=== PATIENT | male | born 1945 | race Caucasian/White ===

== ENCOUNTER → 2017-04-12 | Outpatient (CLI) | payer MEDICARE, OTHER ==
[2013-12-10 20:26] VITALS: BP 147/86
[~2017-04-12] MED LIST: BACL10TA PO; BUPIVACAINE MPF 0.25% 10 ML VIAL. ONE; BUPR100T8 PO; CYCL5TAB PO; DULO60CA6 PO; OMEP20CA5 PO; methylPREDNISolone ACETATE 40 MG/ML VIAL. ONE
--- NOTE | 2017-04-12 13:18 | PAIN ---
DATE OF SERVICE: 04/12/2017 DIAGNOSES: 1. Cervical radiculopathy with cervical spinal stenosis and post-cervical laminectomy syndrome. 2. Lumbar radiculopathy with lumbar spinal stenosis and lumbar spondylosis. 3. Myofascial pain. HISTORY OF PRESENT ILLNESS: The patient is a 71-year-old male who returns for followup status post trigger point injection as well as previous lumbar and cervical epidural steroid injections. The patient has done very well with these in the past, was last seen 06/16/2016. The patient had some trigger point injections, did very well with these in the neck and upper back and mid back. The patient reports that since that time, he has been using heat and massage techniques and therapies to decrease the pain but has begun to the point where it is becoming much more painful and noticeable with less ability to decrease the pain on his own. The patient reports no new motor or sensory deficits, no new changes, but still significant pain in the base of the neck, shoulders, upper back, mid back, slightly more on the left than the right with a bit of weakness noted in the right arm. The patient reports his pain is a 10 on a scale of 10. It is worst as an 8 on average as aching, sharp, tight, shooting, stabbing and tingling in the right arm, but mostly in the base of the neck, shoulders, also some in the jaw, tightness around the anterior aspect of the upper chest and lower neck. The patient reports heat does decrease this and massage technique, especially on the neck and upper back but it is becoming to the point where he is not successful, doing this on his own. The patient reports it does not awaken him from sleep at night, he sleeps about 6 hours to 7 hours at time. No new motor or sensory deficits, no new bowel or bladder incontinence or other complaints. 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 FAMILY HISTORY: Significant for cancer. The patient is unsure what type it is. SOCIAL HISTORY: The patient reports he is currently disabled. Pain does impede his activities of daily living to a fairly significant extent. 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 The patient's medication list was updated and is well documented on the patient's chart as is his current review of systems which was updated and is negative except for those items mentioned in the history of present illness. PHYSICAL EXAMINATION: VITAL SIGNS: Today, his blood pressure is 125/87, pulse 80, respirations 16, temperature is 97.9 degrees Fahrenheit. Height is 5 feet 10 inches, weight is 190 pounds. GENERAL: The patient is awake, alert, oriented, appropriate, very pleasant demeanor. HEENT: Head shows normocephalic, atraumatic. Extraocular movements are intact, symmetrical. Oral cavity: Mucous membranes moist and pink. Dentition is intact. NECK: Shows anterior throat supple without palpable lymphadenopathy noted. Swallow reflex is symmetrical. CHEST: Shows normal on inspection. Breath sounds clear to auscultation bilaterally. HEART: Shows S1 and S2 clear. ABDOMEN: Soft, nontender, nondistended. No palpable organomegaly, no rebound or guarding demonstrated. BACK: Shows spine grossly midline. Normal appearing thoracic kyphosis, cervical lordotic curvature and lumbar lordotic curvature. Cervical paraspinous muscle shows significant tenderness in the inferior aspect of the cervical paraspinous muscles and into the trapezius, more on the left than the right with very firm rope-like musculature in the inferior cervical paraspinous musculature as well as the left trapezius in the middle and lateral distribution is also true in the rhomboid muscles bilaterally with very firm rope-like trigger point musculature bilaterally in the trapezius and the rhomboid distribution, also into the left greater than right, but present bilaterally. Thoracic paraspinous musculature is very tender, more on the left side than the right as well, but without specific radiation. EXTREMITIES: The patient's upper extremities show deep tendon reflexes 1+ in the biceps and triceps tendons. Motor exam is strong with house wrecker strength rated at 5/5 at his biceps and triceps flexion. Lower extremities show deep tendon reflexes 2+ in the patellar and 1+ tendo-calcaneus tendons. Motor exam is strong with 5/5 dorsiflexion, extension, quadriceps and hamstring flexion and are symmetrical. Peripheral pulses are 2+ radial and 1+ posterior tibia. No peripheral edema is noted in any of the extremities. Options were discussed with the patient and the patient's old chart was reviewed as his current medication regimen updated and current review of systems updated today as noted. We will proceed with trigger point injections of the aforementioned musculature. Risks were again discussed including, but not limited to bleeding, infection, possibility of epidural hematoma and subsequent neurological compromise, dural punctures, headaches, spinal cord and/or nerve damage, side effects of steroid medication, pneumothorax, spread of local anesthetic and numbness as well as poor results regarding pain control. The patient understands and wishes to proceed. The patient will return to clinic in approximately 2 weeks for followup, was counseled on return appointment, activity level and side effects to be aware of. Also discussed that heat and massage therapies. The patient will continue this at home, was encouraged to do these exercises and stretches which he does routinely as well. DIAGNOSIS: Myofascial pain. PROCEDURE: Trigger point injections of bilateral trapezius, bilateral cervical paraspinous musculature, bilateral rhomboid musculature and bilateral thoracic paraspinous musculature using sterile prep and drape under local anesthetic. Medication injected a total of 40 mg Depo-Medrol plus total of 11 mL of 0.25% bupivacaine after negative aspiration at each level. CONDITION AT DISCHARGE: Stable. The patient tolerated procedure well, had no complications. YUE HASSAN MD DR: SANTOSH/ching JOB#: [id number] / [id number]
== END | disposition home or self-care (01) ==
LOC: PNCL 09:55
PROVIDERS: ATTEND Anesthesiology
DX: M79.1 Myalgia (principal); M47.26 Other spondylosis with radiculopathy, lumbar region; M96.1 Postlaminectomy syndrome, not elsewhere classified; M48.02 Spinal stenosis, cervical region; M54.12 Radiculopathy, cervical region; M19.91 Primary osteoarthritis, unspecified site; F41.9 Anxiety disorder, unspecified; F32.9 Major depressive disorder, single episode, unspecified; E78.00 Pure hypercholesterolemia, unspecified; Z96.643 Presence of artificial hip joint, bilateral
CPT/HCPCS: 20553; J1030; J3490

== ENCOUNTER → 2017-04-26 | Outpatient (CLI) | payer MEDICARE, OTHER ==
[2013-12-10 20:26] VITALS: BP 147/86
--- NOTE | 2017-04-26 10:41 | PAIN ---
DATE OF SERVICE: 04/26/2017 DIAGNOSES: 1. Cervical radiculopathy with cervical spinal stenosis and post-cervical laminectomy syndrome. 2. Lumbar radiculopathy with lumbar spinal stenosis and spondylosis. 3. Myofascial pain. HISTORY OF PRESENT ILLNESS: The patient is a 71-year-old male who returns for followup status post trigger point injections, last seen on 04/12/2017. The patient did very well with about 75% improvement in the neck, shoulders, more on the left mid upper back, with pain decreased significantly. For about a week and half, the patient reports pain has been returning slightly, but is still doing quite well. He has been stretching and doing strengthening exercises as well as heat and massage techniques and therapies for his shoulders and back, which he feels helps significantly. The patient reports pain is worse at L5, averaging about a 4, at least about 3 and is a 3 today. The patient reports it is tight cramping, sometimes shooting pain in the base of the neck, shoulders, left mid back, upper back and slightly into the low back. The patient reports he is generally feeling much better, no new motor or sensory deficits, no new changes. The patient is sleeping well at night, much better with lying down, worse with up and active, with repetitive motions in the shoulders and upper back. PHYSICAL EXAMINATION: VITAL SIGNS: Today, the patient's blood pressure 133/82, pulse 77, respirations 16, temperature 98.0 degrees Fahrenheit, weight is 192 pounds. GENERAL: The patient is awake, alert, oriented, appropriate, very pleasant demeanor. HEENT: Head shows normocephalic, atraumatic. Extraocular movements are intact and symmetrical. Oral cavity shows mucous membranes moist and pink. Dentition is intact. NECK: Shows anterior throat supple without palpable lymphadenopathy noted. Swallow reflex is symmetrical. CHEST: Shows normal on inspection. Breath sounds clear to auscultation bilaterally. HEART: Shows S1 and S2 clear. ABDOMEN: Soft, nontender, nondistended. No palpable organomegaly is noted. BACK: Shows spine grossly midline. Some slight hypertrophy in the thoracic paraspinous musculature compared to the right. On the left side, quite hypertrophied in appearance. With palpation shows significant tenderness and very firm rope-like musculature in the left trapezius as well as the inferior cervical paraspinous musculature. This is true on the right side, but not to the extent of tenderness, but still very firm rope-like musculature bilaterally, very tender with palpation. Left thoracic paraspinous musculature again hypertrophied on the left compared to the right with very firm rope-like musculature in this region as well. Very tender with palpation without radiation. Lumbar shows some slight area of one specific trigger point region in the left lumbar distribution, but not the right. Well-healed surgical scar is noted in the low back as well. Options were discussed with the patient, and the patient's old chart was reviewed, his current medication regimen updated. Current review of systems updated today as well. We will proceed with trigger point injections of the left and right trapezius, cervical paraspinous musculature as well as thoracic paraspinous musculature and the left lumbar paraspinous musculature. Risks were again discussed including, but not limited to bleeding, infection, possibility of intravascular injection sequelae, pneumothorax, spread of local anesthetic and numbness, side effects of steroid medication and poor results regarding pain control. The patient understands and wishes to proceed. The patient will return to clinic in approximately 2 weeks for followup, was counseled on return appointment, activity level and side effects to be aware of. The patient also counseled as to maintain strengthening and stretching exercises, heat and massage therapies as he is doing with upper mid back and low back. DIAGNOSES: Myofascial pain with trigger points of bilateral trapezius, bilateral cervical paraspinous musculature, bilateral thoracic paraspinous musculature and left lumbar paraspinous musculature. PROCEDURE: Trigger point injections with local anesthetic under sterile prep and drape. Medications, injected with a total of 40 mg Depo-Medrol plus total of 10 mL 0.25% bupivacaine with negative aspiration at each injection level. CONDITION AT DISCHARGE: Stable. The patient tolerated procedure well, had no complications. YUE HASSAN MD DR: SANTOSH/ching JOB#: [id number] / [id number]
== END | disposition home or self-care (01) ==
LOC: PNCL 08:11
PROVIDERS: ATTEND Anesthesiology
DX: M79.1 Myalgia (principal); M54.12 Radiculopathy, cervical region; M48.02 Spinal stenosis, cervical region; M96.1 Postlaminectomy syndrome, not elsewhere classified; M47.26 Other spondylosis with radiculopathy, lumbar region; M48.061 Spinal stenosis, lumbar region without neurogenic claudication
CPT/HCPCS: 20553; J1030; J3490

== ENCOUNTER → 2017-06-10 | Outpatient (CLI) | payer MEDICARE, OTHER ==
[2013-12-10 20:26] VITALS: BP 147/86
--- NOTE | 2017-06-10 13:25 | PN ---
DATE: 07/10/2017 PROGRESS NOTE FOR PAIN CLINIC. DIAGNOSES: 1. Cervical radiculopathy with cervical spinal stenosis and post-cervical laminectomy syndrome. 2. Lumbar radiculopathy with lumbar spinal stenosis and spondylosis. 3. Myofascial pain. HISTORY OF PRESENT ILLNESS: The patient is a 71-year-old male who returns to followup status post trigger point injections on 04/26/2017. The patient reported he did very well with these initially, with approximately 70% improvement overall. There is still some pain increasing, now on the base of the neck, shoulders, upper back and mid back, becoming more tight, more aching and dull, with some radiating pain to the lateral shoulder, slightly more on the right than the left, but present bilaterally. The patient reports the pain is a 5 on a scale of 10 at its worst, 4 on average and 3 on its least and it is a 3 today. The patient reports it is better with lying down or resting and worse with using his upper extremities, stretching his neck, looking upwards, using his arms in repetitive motion above his head or even getting dressed, putting his arm through the sleeve of his shirt. The patient reports it does not awaken him from sleep. However, he feels better with lying down, resting and supporting his arms without stretching. The patient reports difficulty with driving the car with pain as well, reaching forward for the chair mostly with the right arm. The patient reports no new motor or sensory deficits. No other complaints. PHYSICAL EXAMINATION: VITAL SIGNS: The patient's blood pressure is 133/89, pulse 79, respirations 18 and temperature 97.8 degrees Fahrenheit. Height is 5 foot 10 inches and weight is 196 pounds. GENERAL: The patient is awake, alert, oriented and appropriate with very pleasant demeanor. HEENT: Exam shows normocephalic, atraumatic. Extraocular movements are intact and symmetrical. Oral cavity, mucous membranes moist and pink. NECK: Shows anterior throat supple. Swallow reflex symmetrical. CHEST: Shows normal on inspection. Breath sounds are clear to auscultation bilaterally. HEART: Shows S1, S2 clear. BACK: Shows spine grossly in the midline. Cervical paraspinous musculature is symmetrical on inspection. With palpation, it shows some moderate tenderness with severe pain with very firm rhomboid musculature in the inferior aspect of the cervical paraspinous muscular as well as into the bilateral trapezius and into the bilateral rhomboid distribution and the upper thoracic distribution, again worse on the right than the left at this time, with very firm, rope-like musculature in each of these areas identified, but without specific radiation. The patient has good rotation of motion of the cervical spine as well as extension and flexion. Minor pain reported with extension and some pulling sensation reported with forward flexion, but not with right or left lateral rotation past 45 degrees. EXTREMITIES: Upper extremities show deep tendon reflexes 2+ in the biceps and triceps tendons. Motor exam is strong with dining room helper strength rated at 5/5 with biceps and triceps flexion. Options were discussed with the patient. The patient's old chart was reviewed as his current medication regimen updated. Current review of systems updated today as well and we will proceed with trigger point injections of the identified musculature. Risks were discussed including but not limited to bleeding, infection, possibilities of intravascular injection sequelae, spread of local anesthetic and numbness, pneumothorax, side effects to steroid medication and poor results regarding pain control. The patient understands and wishes to proceed. The patient will return to the clinic in approximately 4 weeks for followup, was counseled on return appointment, activity level and side effects to be aware of. DIAGNOSES: 1. Myofascial pain. 2. Cervical radiculopathy with post-cervical laminectomy syndrome. 3. Lumbar radiculopathy with lumbar spinal stenosis. PROCEDURE: Trigger point injections to bilateral cervical paraspinous musculature, bilateral trapezius musculature, bilateral rhomboid musculature and bilateral thoracic paraspinous musculature under sterile prep and drape using local anesthetic. MEDICATION INJECTED: A total of 40 mg Depo-Medrol for a total of 10 mL of 0.25% bupivacaine after negative aspiration at each injection site. CONDITION AT DISCHARGE: Stable. The patient tolerated the procedure well, had no complications. YUE HASSAN MD DR: SANTOSH/ching JOB#: [id number] / [id number]
== END | disposition home or self-care (01) ==
LOC: PNCL 07:37
PROVIDERS: ATTEND Anesthesiology
DX: M54.12 Radiculopathy, cervical region (principal); M48.02 Spinal stenosis, cervical region; M96.1 Postlaminectomy syndrome, not elsewhere classified; M47.26 Other spondylosis with radiculopathy, lumbar region; M48.061 Spinal stenosis, lumbar region without neurogenic claudication; M79.1 Myalgia
CPT/HCPCS: 20553; J1030; J3490

== ENCOUNTER → 2017-08-30 | Outpatient (CLI) | payer OTHER ==
[~2017-08-30] MED LIST changes: -BACL10TA PO; +BUPIVACAINE MPF 0.25% 10 ML VIAL.; -BUPIVACAINE MPF 0.25% 10 ML VIAL. ONE; -BUPR100T8 PO; -CYCL5TAB PO; -DULO60CA6 PO; -OMEP20CA5 PO; +methylPREDNISolone ACETATE 40 MG/ML VIAL.; -methylPREDNISolone ACETATE 40 MG/ML VIAL. ONE
== END | disposition home or self-care (01) ==
LOC: PNCL 08:04
DX: M54.12 Radiculopathy, cervical region (principal); M48.02 Spinal stenosis, cervical region; M96.1 Postlaminectomy syndrome, not elsewhere classified; M54.16 Radiculopathy, lumbar region; M48.061 Spinal stenosis, lumbar region without neurogenic claudication
CPT/HCPCS: 20553; J1030; J3490

== ENCOUNTER → 2017-09-28 | Outpatient (CLI) | payer OTHER | END | disposition home or self-care (01) | LOC: PNCL 09:40 | DX: M79.1 Myalgia (principal); M54.12 Radiculopathy, cervical region; M48.02 Spinal stenosis, cervical region; M96.1 Postlaminectomy syndrome, not elsewhere classified | CPT/HCPCS: 20553; J1030; J3490 ==

== ENCOUNTER → 2017-10-26 | Outpatient (CLI) | payer OTHER | LOC: PNCL 09:37 | DX: M51.16 Intervertebral disc disorders with radiculopathy, lumbar region (principal); M48.061 Spinal stenosis, lumbar region without neurogenic claudication; M50.10 Cervical disc disorder with radiculopathy, unspecified cervical region; M79.1 Myalgia | CPT/HCPCS: 20553; J1030; J3490 ==

== ENCOUNTER → 2017-11-16 | Outpatient (CLI) | payer OTHER | END | disposition home or self-care (01) | LOC: PNCL 09:40 | DX: M79.1 Myalgia (principal); M48.061 Spinal stenosis, lumbar region without neurogenic claudication; M47.26 Other spondylosis with radiculopathy, lumbar region; M96.1 Postlaminectomy syndrome, not elsewhere classified; M48.02 Spinal stenosis, cervical region | CPT/HCPCS: 20553; J1030; J3490 ==

== ENCOUNTER → 2018-08-11 | Outpatient (CLI) | payer MEDICARE ==
[2013-12-10 20:26] VITALS: BP 147/86
[~2018-08-11] MED LIST changes: +BACL10TA PO; -BUPIVACAINE MPF 0.25% 10 ML VIAL.; +BUPR100T8 PO; +CHOL200074 PO; +CYCL5TAB PO; +DULO60CA6 PO; +FINA5TAB PO; +OMEP20CA5 PO; +[UNRECOGNIZED DRUG - OTHER]; -methylPREDNISolone ACETATE 40 MG/ML VIAL.
--- NOTE | 2018-08-11 18:04 | RAD ---
Ultrasound venous Doppler INDICATION:LEFT CALF PAIN TECHNIQUE: Grayscale, color Doppler and spectral waveform ultrasound images of the left lower extremity deep veins obtained. COMPARISON: None FINDINGS: The interrogated deep veins are compressible and demonstrate evidence of blood flow with normal respiratory variation and response to augmentation. Lobulated mixed echogenicity masslike lesion in the popliteal fossa of the knee measuring 2.8 x 3.5 x 5.1 cm without internal vascularity. IMPRESSION: 1. No sonographic evidence of acute DVT of the left lower extremity deep veins. 2. Popliteal fossa lesion likely compress Hodge's cyst or hematoma. Electronically signed by: Edin Kennedy DO (08/11/2018 6:00 PM) [facility]
== END | disposition home or self-care (01) ==
LOC: US 16:53
PROVIDERS: ATTEND Orthopaedic Surgery
DX: M79.662 Pain in left lower leg (principal)
CPT/HCPCS: 93971

== ENCOUNTER → 2018-08-17 | Outpatient (CLI) | payer MEDICARE ==
[2013-12-10 20:26] VITALS: BP 147/86
[~2018-08-17] MED LIST changes: +BACL20TA PO; +BUPR300T4 PO; +IBUP-1007 PO; +TAMS0.4C2 PO
--- NOTE | 2018-08-17 09:10 | RAD ---
EXAM: Left lower extremity bone length study. HISTORY: Knee arthroplasty. COMPARISON: None. FINDINGS: Frontal views of the left lower extremity are obtained. There is a left hip arthroplasty. The femoral head arthroplasty component is asymmetrically positioned within the acetabular cup. This suggests asymmetric liner wear. There is severe medial compartment joint space narrowing involving the left knee. There is associated compartment subchondral sclerosis. There is moderate tricompartmental spurring. There is bony remodeling involving the medial compartment with suspected genu varus. IMPRESSION: 1. Severe left knee medial compartment predominant osteoarthritis of the left knee with medial compartment bony remodeling is suspected genu varus. 2. Left hip arthroplasty. The femoral head component is asymmetrically positioned within the acetabular cup. This suggests asymmetric liner wear. Electronically signed by: Maya Powell MD (08/17/2018 9:06 AM) [id number]
--- NOTE | 2018-08-17 13:11 | RAD ---
MR of the left knee - Hayes and Nephew protocol History: left knee pain. PRE OP TOTAL LEFT KNEE ARTHROPLASTY. HAYES&NEPHEW PROTOCOL. NO SX HX. PRIOR XRAY. Technique: Images are obtained in accordance with the standard Hayes and Nephew protocol. 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 Moderate joint effusion. Moderate Hodge's cyst. Severe primary osteoarthritis. Medial meniscal tear. Lateral meniscal tear. Anterior cruciate ligament is not visualized. Generalized soft tissue edema. Electronically signed by: Ronak Taylor MD (08/17/2018 1:05 PM) [facility]
== END | disposition home or self-care (01) ==
LOC: RAD 08:34
PROVIDERS: ATTEND Orthopaedic Surgery
DX: Z01.818 Encounter for other preprocedural examination (principal); S83.242A Other tear of medial meniscus, current injury, left knee, initial encounter; S83.282A Other tear of lateral meniscus, current injury, left knee, initial encounter; M17.12 Unilateral primary osteoarthritis, left knee; M25.462 Effusion, left knee; M71.22 Synovial cyst of popliteal space [Baker], left knee; R60.0 Localized edema; X58.XXXA Exposure to other specified factors, initial encounter; Y93.89 Activity, other specified; Y92.89 Other specified places as the place of occurrence of the external cause; Y99.8 Other external cause status
CPT/HCPCS: 73721; 77073

== ENCOUNTER → 2018-08-22 | Outpatient (CLI) | payer MEDICARE ==
[2013-12-10 20:26] VITALS: BP 147/86
[2018-08-22 10:57] LABS: BILIRUBIN,URINE NEGATIVE (NEG); CLARITY,URINE CLEAR; COLOR,URINE YELLOW; NITRITE,URINE NEGATIVE (NEG); PH,URINE 5.5; PROTEIN,URINE NEGATIVE (NEG-TRACE); UROBILINOGEN,URINE 0.2 mg/dL (0.2 mg/dL)
[2018-08-22 11:10] LABS: BACTERIA,URINE FEW /HPF (0-FEW); RBC,URINE OCC /HPF (0-2)
[2018-08-22 11:30] LABS: BASO % 0 % (0-3); EOS # 0.2 x10^3/uL (0.0-0.7); EOS % 2 % (0-3); HEMOGLOBIN 14.2 g/dL (13.0-17.5); LYMPH # 1.3 x10^3/uL (1.0-4.8); LYMPH % 16 % (24-48); MEAN CORPUSCULAR HEMOGLOBIN 28 pg (25-35); MEAN CORPUSCULAR HGB CONC 33 g/dL (31-37); MEAN CORPUSCULAR VOLUME 85 fL (79-100); MONO # 0.6 x10^3/uL (0.0-1.1); MONO % 8 % (0-9); NEUT % 74 % (31-73); PLATELET COUNT 181 x10^3/uL (140-400); RED BLOOD COUNT 5.03 x10^6/uL (4.30-5.70); RED CELL DISTRIBUTION WIDTH 14.3 % (11.5-14.5); WHITE BLOOD COUNT 8.1 x10^3/uL (4.0-11.0)
[2018-08-22 11:39] LABS: ALBUMIN 3.6 g/dL (3.4-5.0); CALCIUM 8.6 mg/dL (8.5-10.1); GFR 73.5; POTASSIUM 4.4 mmol/L (3.5-5.1)
--- NOTE | 2018-08-22 11:46 | EKG ---
[facility] [address] [place] [address] Test Date: 2018-08-22 Test Time: 11:18:30 Pat Name: SHAHRIAR BEACH Department: Room: Gender: M Manager Recovery: : 1945 Requested By: ADRIANNE BYRD Order Number: [id number] Reading MD: Buck Kearns Measurements Intervals [place] Rate: 68 P: 58 TX: 180 QRS: 37 QRSD: 100 T: 70 QT: 408 QTc: 439 Interpretive Statements SINUS RHYTHM VENTRICULAR PREMATURE COMPLEX(ES) LOW LIMB LEAD VOLTAGE Electronically Signed On 08-23-2018 18:32:11 HEATING AND COOLING TECHNICIAN by Buck Kearns
--- NOTE | 2018-08-22 12:10 | RAD ---
AP and Lateral Views of the Chest 08/22/2018 11:48 AM Indication: Preoperative Comparison: chest radiograph August 17, 2011 Findings: No acute focal consolidation or infiltrate is seen. No pneumothorax or pleural effusion is identified. Heart size is within normal limits. Bony thorax is grossly intact. IMPRESSION: No evidence of acute cardiopulmonary process. Electronically signed by: Joesph Alva MD (08/22/2018 12:05 PM) [id number]
== END | disposition home or self-care (01) ==
LOC: SURGPAT 09:53
PROVIDERS: ATTEND Orthopaedic Surgery
DX: Z01.818 Encounter for other preprocedural examination (principal); M17.12 Unilateral primary osteoarthritis, left knee; I49.3 Ventricular premature depolarization
CPT/HCPCS: 36415; 71046; 80048; 81001; 82040; 82306; 85025; 85610; 85651; 85730; 87641; 93005

== ENCOUNTER 2018-09-13 06:51 | Inpatient (IN) | payer MEDICARE ==
[2018-09-13] VITALS (7 sets, daily range): BP systolic 109–128; BP diastolic 65–82
[~2018-09-13] VITALS: Ht 177.8 cm; Wt 93.9 kg
[~2018-09-13 06:51] MED LIST changes: +DEXAMETHASONE SOD PHOS 20 MG/5 ML VIAL. ONE; +FAMOTIDINE 20 MG/2 ML VIAL ONE; +HYDROcodone/APAP 7.5/325MG 1 TAB TABLET PO PRN; +LIDOCAINE 2% PF 5 ML VIAL. ONE; +MELOXICAM 7.5 MG TABLET PO PRN; +MORPHINE SULFATE 5 MG, KETOROLAC 30MG VIAL 30 MG, ROPIVacaine 0.5% PF 60 ML, EPINEPHrin... INT ART ONE; +ONDANSETRON PF 4 MG/2 ML VIAL. ONE; +PROPOFOL 0 ML IV ONE; +ROCURONIUM 50 MG/5 ML VIAL. ONE; +TRANEXAMIC ACID 1,000 MG in IV NS 50ML -- 1ST BAG INJ ONE
[2018-09-13] MEDS ORDERED: PROCHLORPERAZINE 10 MG/2 ML VIAL. IV PRN (07:00)
[2018-09-13] MEDS ORDERED: fentaNYL PF VIAL 100 MCG/2 ML VIAL IV PRN ×4 (07:00→13:15)
[2018-09-13] MEDS ORDERED: HYDROmorphone 2 MG/ML VIAL IV PRN (07:00)
[2018-09-13] MEDS ORDERED: IV RINGERS,LACTATED 1000ML 1,000 ML IV SCH (07:00)
[2018-09-13] MEDS ORDERED: ONDANSETRON PF 4 MG/2 ML VIAL. IV PRN (07:00)
[2018-09-13] MEDS ORDERED: LIDOCAINE 1% PF 2 ML VIAL. ID PRN (07:00)
[2018-09-13] MEDS ORDERED: MORPHINE SULFATE 2 MG/ML VIAL. IV PRN (07:00)
--- NOTE | 2018-09-13 07:39 | PDOC1 ---
History and Physical Date of Admission Date of Admission DATE: 09/13/18 TIME: 07:37 Identification/Chief Complaint Chief Complaint Left knee arthritis pain Source Source: Chart review, Patient History of Present Illness History of Present Illness This 72-year-old man has left knee osteoarthritis for which she has tried nonoperative treatment without success. He has osteoarthritis elsewhere, and has previously had bilateral hip replacements, and a right total knee replacement, all of which are functioning well. The left knee interferes with his activity on a daily basis. Past Medical History Past Medical History Arthritis in multiple joints with multiple joint replacements. Cervical and lumbar arthritis, and lower extremity neuropathy. Borderline diabetes. Fibromyalgia, sees Dr. Duncan for trigger point injections. Depression. Psych: Depression Musculoskeletal: Osteoarthritis Endocrine: Other (prediabetes) Past Surgical History Past Surgical History Left triceps tendon repair, carpal tunnel release, cervical fusion 2003, lumbar fusion 2, bilateral total hip replacement, right knee replacement Past Surgical History: Total hip replacement, Total knee replacement Family History Family History Parents are Social History Smoke: No (were going) Current Medications Current Medications Current Medications Morphine Sulfate 5 mg/Ketorolac Tromethamine 30 mg/Ropivacaine 60 ml/ Epinephrine HCl 0.5 mg/Sodium Chloride 100 ml @ 100 mls/hr 1X ONCE INT ART ; Start 09/13/18 at 06:00; Stop 09/13/18 at 06:59; Status DC Ondansetron HCl (Zofran) 4 mg PRN Q6HRS PRN IV NAUSEA/VOMITING; Start 09/13/18 at 07:00; Stop 09/14/18 at 06:59 Fentanyl Citrate (Fentanyl 2ml Vial) 25 mcg PRN Q5MIN PRN IV MILD PAIN; Start 09/13/18 at 07:00; Stop 09/14/18 at 06:59 Fentanyl Citrate (Fentanyl 2ml Vial) 50 mcg PRN Q5MIN PRN IV MODERATE TO SEVERE PAIN; Start 09/13/18 at 07:00; Stop 09/14/18 at 06:59 Morphine Sulfate (Morphine Sulfate) 1 mg PRN Q10MIN PRN IV SEVERE PAIN; Start 09/13/18 at 07:00; Stop 09/14/18 at 06:59 Ringer's Solution 1,000 ml @ 30 mls/hr Q24H IV Last administered on 09/13/18at 07:32; Start 09/13/18 at 07:00; Stop 09/13/18 at 18:59 Lidocaine HCl (Xylocaine-Mpf 1% 2ml Vial) 2 ml PRN 1X PRN ID IV START; Start at 07:00; Stop 09/14/18 at 06:59 Hydromorphone HCl (Dilaudid) 0.5 mg PRN Q10MIN PRN IV SEV PAIN, Second choice; Start 09/13/18 at 07:00; Stop 09/14/18 at 06:59 Prochlorperazine Edisylate (Compazine) 5 mg PACU PRN PRN IV NAUSEA, MRX1; Start 09/13/18 at 07:00; Stop 09/14/18 at 06:59 Meloxicam (Mobic) 15 mg 1X PREOP PRN PO PRIOR TO PROCEDURE; Start 09/13/18 at 06 :00; Stop 09/13/18 at 06:01; Status Cancel Acetaminophen/ Hydrocodone Bitart (Lortab 7.5/325) 2 tab 1X PREOP PRN PO PRIOR TO PROCEDURE Last administered on 09/13/18at 07:32; Start 09/13/18 at 06:00; Stop 09/13/18 at 18:00 Cefazolin Sodium/ Dextrose 50 ml @ 100 mls/hr 1X PREOP PRN IV PRIOR TO PROCEDURE; Start 09/13/18 at 06:00; Stop 09/13/18 at 18:00 Meloxicam (Mobic) 15 mg 1X PREOP PRN PO PRIOR TO PROCEDURE; Start 09/13/18 at 06 :00; Stop 09/13/18 at 18:00 Acetaminophen/ Hydrocodone Bitart (Lortab 7.5/325) 2 tab 1X PREOP PRN PO PRIOR TO PROCEDURE; Start 09/13/18 at 06:00; Stop 09/13/18 at 06:00; Status DC Cefazolin Sodium/ Dextrose 50 ml @ 100 mls/hr 1X PREOP PRN IV PRIOR TO PROCEDURE; Start 09/13/18 at 06:00; Stop 09/13/18 at 06:00; Status DC Tranexamic Acid 1000 mg/Sodium Chloride 60 ml @ 60 mls/hr 1X PERIOP ONCE INJ ; Start 09/13/18 at 06:00; Stop 09/13/18 at 06:59; Status DC Tranexamic Acid 1000 mg/Sodium Chloride 60 ml @ 60 mls/hr 1X PERIOP ONCE INJ ; Start 09/13/18 at 08:00; Stop 09/13/18 at 08:59 Propofol 20 ml @ As Directed STK-MED ONCE IV ; Start 09/13/18 at 06:44; Stop 09/13 at 06:45; Status DC Dexamethasone Sodium Phosphate (Decadron) 20 mg STK-MED ONCE .ROUTE ; Start 09/13 at 06:44; Stop 09/13/18 at 06:45; Status DC Lidocaine HCl (Lidocaine Pf 2% Vial) 5 ml STK-MED ONCE .ROUTE ; Start 09/13/18 at 06:44; Stop 09/13/18 at 06:45; Status DC Ondansetron HCl (Zofran) 4 mg STK-MED ONCE .ROUTE ; Start 09/13/18 at 06:44; Stop 09/13/18 at 06:45; Status DC Rocuronium [place] (Zemuron) 50 mg STK-MED ONCE .ROUTE ; Start 09/13/18 at 06:44 ; Stop 09/13/18 at 06:45; Status DC Famotidine (Pepcid Vial) 20 mg STK-MED ONCE .ROUTE ; Start 09/13/18 at 06:45; Stop 09/13/18 at 06:46; Status DC Active Scripts Active Reported Ibuprofen 600 Mg Tablet 600 Mg PO PRN Q6HRS PRN Tamsulosin Hcl 0.4 Mg Cap.er.24h 0.4 Mg PO DAILY Bupropion Xl (Bupropion Hcl) 300 Mg Tab.er.24h 300 Mg PO DAILY07 Baclofen 20 Mg Tablet 20 Mg PO QID Prilosec (Omeprazole) 20 Mg Capsule.dr 1 Cap PO DAILY Cymbalta (Duloxetine Hcl) 60 Mg Capsule.dr 1 Cap PO DAILY Allergies Allergies: Coded Allergies: No Known Drug Allergies (Unverified , 09/13/18) ROS General: No: Night Sweats PSYCHOLOGICAL ROS: YES: Depression; No: Other (PTSD) HEENT: No: Heacaches Hematological and Lymphatic: No: Bleeding Problems, Blood Clots Respiratory: No: Cough, Shortness of breath Cardiovascular: No Chest Pain Gastrointestinal: No Nausea, No Vomiting, No Diarrhea, No Constipation Musculoskeletal: Yes Gait Disturbance, Yes Joint Pain Physical Exam General: Alert, Cooperative, No acute distress HEENT: Atraumatic, EOMI Lungs: Normal air movement Heart: RRR Abdomen: Soft Extremities: No clubbing, No cyanosis, Other (The LEFT knee shows a mildly antalgic gait. There is varus alignment. No masses. No detectable effusion. Tenderness on the joint lines. Range of motion is 5-115 degrees. There is crepitus with range of motion, and pain at the extremes of motion. The knee is stable to varus and valgus stress without subluxation or laxity. Muscle strength is slightly weak for the quadriceps 4+/5 which may be due to pain or avoidance, and does not seem neurogenic, and the muscle tone and bulk is slightly decreased. The hamstring strength is 5/5. The skin is normal with no scars, rashes, lesions or ulcers. Light touch sensation is intact. No edema and no varicosities. Dorsalis pedis pulse is intact and capillary refill is normal. ) Skin: No rashes, No breakdown Neuro: Normal speech, Normal tone, Other (slightly decreased sensation bilateral lower extremities) Psych/Mental Status: Mental status NL, Mood NL Vitals Vitals Vital Signs Date Time Temp Pulse Resp B/P (MAP) Pulse Ox O2 Delivery O2 Flow Rate FiO2 09/13/18 07:32 20 95 Room Air 09/13/18 07:26 98.7 76 98.7 09/13/18 07:21 137/79 Images Images [facility] [address] [place] [address] IMAGING REPORT Signed PATIENT: SHAHRIAR BEACH ACCOUNT: [id number] : 1945 LOCATION: [facility] AGE: 72 SEX: M EXAM STATUS: REG CLI ORD. PHYSICIAN: ADRIANNE BYRD MD REASON: PROCEDURE: KNEE LEFT 3V 3 view left knee 08/08/2018 CLINICAL INDICATION: Left knee pain with no known injury. COMPARISON: None. FINDINGS: Total right knee arthroplasty. There is linear soft tissue calcification in the medial aspect of the proximal right calf seen on the AP view. No acute fracture of the left knee. Severe tricompartment degenerative changes with tricompartment zkib-[id number] contact, osteophytosis and subchondral sclerosis. There is minimal lateral subluxation of the tibia relative to the femur and a mild genu varus deformity due to the kjke-qh-kkbo contact of the medial compartment. There is a small suprapatellar knee joint effusion. IMPRESSION: Severe tricompartment degenerative changes of the left knee with [id number]-[id number] contact. Electronically signed by: Chin Dela Cruz MD (08/08/2018 12:57 PM) [facility] DICTATED and SIGNED BY: CHIN DELA CRUZ MD DATE: 08/08/18 1254 VTE Prophylaxis Ordered VTE Prophylaxis Devices: Yes VTE Pharmacological Prophylaxi: Yes Assessment/Plan Assessment/Plan I recommended left total knee arthroplasty for his wahd-[id number]-[id number] arthritis. He is still relatively active otherwise. His other medical conditions such as borderline diabetes, fibromyalgia, neuropathy and depression all raise the risk of poor outcome, but the risks are manageable and I still recommend knee arthroplasty. He stated understanding of those risks, the benefits and alternatives.We discussed the potential risks of infection, neurovascular injury , bleeding, blood clots, need for revision surgery, or other potential surgical or anesthetic complications. All of his questions about surgery were answered and he desires to proceed with surgery. He is here for elective left knee arthroplasty today. ADRIANNE BYRD MD Sep 13, 2018 07:39
[2018-09-13] MEDS ORDERED: TRANEXAMIC ACID 1,000 MG in IV NS 50ML -- 2ND BAG INJ ONE (08:00)
[2018-09-13] MEDS ORDERED: fentaNYL PF VIAL 100 MCG/2 ML VIAL ONE (09:33)
[2018-09-13] MEDS ORDERED: PROPOFOL 0 ML IV ONE (09:33)
[2018-09-13] MEDS ORDERED: MIDAZOLAM HCL/PF 2 MG/2 ML VIAL. ONE (09:33)
[2018-09-13] MEDS ORDERED: PROPOFOL 50 ML IV ONE ×2 (09:34→12:00)
[2018-09-13] MEDS ORDERED: VANCOMYCIN 1 GM VIAL. ONE (10:12)
[2018-09-13] MEDS ORDERED: TOBRAMYCIN POWDER 1.2 GM VIAL. ONE (10:12)
[2018-09-13] MEDS ORDERED: ISOFLURANE UP TO 15 MINUTES. IH ONE (12:20)
[2018-09-13] MEDS ORDERED: VASOPRESSIN 20 UNIT/ML VIAL. ONE (12:20)
[2018-09-13] MEDS ORDERED: PROPOFOL 20 ML IV ONE (12:59)
--- NOTE | 2018-09-13 13:12 | PDOC4 ---
Operative Note Operative Note Date of Procedure: September 13, 2018 Pre-Op Diagnosis: Unilateral primary osteoarthritis, left knee. M17.12 Post-Op Diagnosis: same Procedure: left total knee arthroplasty with patella resurfacing, CPT 65964 Surgeon: Adrianne Luna MD Communications Writer: RGE Roa (Annie) Anesthesia: General EBL: 100 mL Specimens Obtained: left knee bone and soft tissue Complications: none Implant Company: [employer] patient matched cutting blocks. Drains: hemovac plus pain catheter Tourniquet time: 62 Minutes Tourniquet Pressure: 350 mm Hg Indications for Procedure: Arthritis pain unrelieved by nonoperative management. Findings: Severe osteoarthritis with bone on bone contact in all three compartments Implants used: Size 6 left bicruciate stabilized Journey II BCS Oxinium femoral component, size 5 left Journey nonporous tibial baseplate, size 5-6 13 mm left Journey II BCS XLPE articular insert, 35 mm oval Kristina II resurfacing patellar component Procedure in Detail: The patient was identified in the preoperative holding area, and the correct left lower extremity was marked by me. The patient was taken to the operating room where the patient was anesthetized by the Department of Anesthesia. Preoperative antibiotics were given intravenously. Tranexamic acid 1 g was given intravenously for intraoperative hemostasis. A "time-out" procedure was performed. The patient was positioned supine on the operative table with a tourniquet on the upper left thigh. The left lower limb was thoroughly scrubbed , then sterile surgical prep solution was applied, and the limb was draped in sterile fashion. An impervious stockinet and adhesive drape were used such that the skin was entirely covered. An Ramírez leg barrett was used. The operating team wore personal exhaust-ventilated hoods. The limb exsanguinated with an Esmarch bandage, and the tourniquet was inflated. A midline skin incision was made with a scalpel using the patella and tibial tubercle as landmarks. Electrocautery was used for hemostasis. My surgical first assistant used rake retractors. A medial parapatellar arthrotomy incision was used with extension into the distal quadriceps tendon. The patella was retracted laterally and Hohmann retractors were now used by my surgical first assistant. Excess synovium, the menisci, and the cruciate ligaments were resected sharply. The patella was assessed and excess synovium and osteophytes around the patellar articulation were removed. The patella was measured with a caliper, cut freehand with a saw using caliper measurements, sized, and then drilled for an oval three-pegged patella component. A periarticular multimodal ropivacaine anesthetic injection was used in the suprapatellar pouch and distal quadriceps muscle. Whitesides's line and the transepicondylar axis were marked on the femur. A patient matched cutting guide was pinned to the femur, and a distal femoral cut was made with an oscillating saw. My surgical first assistant held Hohmann retractors and an [facility] retractor to protect the medial and lateral collateral ligaments, the patellar tendon, the skin and the other soft tissues. A 5-in-1 Journey II cutting guide was then applied and pinned to the femur. The posterior, anterior , and all chamfer cuts were made with the oscillating saw. An extramedullary guide was pinned to the tibia and rotational alignment and the planned resection thickness assessed. An external alignment nazia was used to verify the planned cut in the varus-valgus plane and regarding posterior slope referencing the tibial tubercle, the tibial shaft, the ankle joint, and the second metatarsal. The upper tibia was cut made with an oscillating saw. My surgical first assistant held Hohmann retractors and a posterior cruciate ligament retractor to protect the medial and lateral collateral ligaments, the patellar tendon, the skin, the peroneal nerve and the other soft tissues. The upper tibia was sized with a trial baseplate. The posterior compartment was cleared of osteophytes and loose bodies. The periarticular anesthetic injection was used in the posterior compartment. The box cut for a posterior stabilized component was made. A preliminary reduction was performed with a trial femur, trial tibial baseplate and trial polyethylene. Soft-tissue balancing was now performed, and extension and rotation of the alignments was checked using a guide nazia in the tibial trial and a guide pin in the femur. No additional releases were required. The stability was assessed using different thicknesses of tibial articular surface to find satisfactory stability and good range of motion. The rotation of the tibial component was marked on the upper tibia. Final trial reduction was now performed verifying patella tracking and tibiofemoral stability and alignment. The tibia preparation was completed with a drill, saw, and fin punch at the previously noted rotation. The final implants were verified and opened. Outer gloves were changed by the operating team. The bone cuts were washed thoroughly with the [place] InterPulse device and dried. Two packages of [employer] Nephew Rally HV bone cement were mixed in powdered form with Vancomycin 1gm and Tobramycin 1.2 gm, and then vacuum-mixed with the monomer, and placed into a cement gun. The cut surfaces of the bone were thoroughly dried with Dewey-tip suction and with laparotomy sponges for cement interdigitation. The final components were cemented into place. The knee was kept at full extension while the cement hardened, and excess cement was removed. A Betadine lavage was used throughout the surgical exposure, and allowed to sit in contact with the exposed joint surfaces for three minutes while the cement hardened. Tranexamic acid 1 g was redosed intravenously for additional intraoperative hemostasis. The tourniquet was released, and electrocautery was used for hemostasis. A final periarticular anesthetic injection was used for pain relief. A final check of rahjf-da-commqk and stability was made, and the polyethylene implant final size was chosen. The polyethylene implant was secured to the tibial baseplate, and the knee was reduced a final time and range of motion and stability was confirmed. Thorough irrigation was used. Hemovac and pain catheter were used.The arthrotomy was closed with interrupted idpvuy-vq-dzelt # 1 PDS suture. The arthrotomy incision was then run with #1 STRATAFIX Symmetric PDS Plus Knotless suture. The subcutaneous tissues were reapproximated initially with 2-0 PDS . Next the subcuticular layer was reapproximated in a running fashion with #3-0 Stratafix suture by my surgical first assistant. The skin incision was then covered and reinforced with Acticoat, followed by a CHARLY single use negative pressure wound therapy dressing Soft roll and an Marbin wrap were applied. Needle and sponge counts were correct. There were no apparent complications. The patient returned to the recovery room in stable condition. ADRIANNE LUNA MD Sep 13, 2018 13:12
[2018-09-13] MEDS ORDERED: IV NORMAL SALINE 1000ML BAG 1,000 ML IV SCH (13:13)
[2018-09-13] MEDS ORDERED: METOCLOPRAMIDE HCL 10 MG/2 ML VIAL. IV PRN (13:15)
[2018-09-13] MEDS ORDERED: PROCHLORPERAZINE 5 MG TABLET. PO PRN (13:15)
[2018-09-13] MEDS ORDERED: DEXTROSE 50% 25 GM / 50ML DISP.SYRIN. IV PRN (13:15)
[2018-09-13] MEDS ORDERED: diphenhydrAMINE 50 MG/ML VIAL IV PRN (13:15)
[2018-09-13] MEDS ORDERED: MORPHINE SULFATE 4 MG/ML VIAL. IV PRN ×2 (13:15)
[2018-09-13] MEDS ORDERED: CALCIUM CARBONATE 500 MG TAB.CHEW PO PRN (13:15)
[2018-09-13] MEDS ORDERED: 0.9 % SODIUM CHLORIDE 10 ML DISP.SYRIN. IV PRN (13:15)
[2018-09-13] MEDS ORDERED: oxyCODONE/APAP 5/325 1 TAB TABLET PO PRN (13:45)
[2018-09-13] MEDS: BACLOFEN 10 MG TABLET. PO SCH ×3 (14:00→21:00)
[2018-09-13] MEDS: DULoxetine HCL 30 MG CAPSULE.DR PO SCH (14:00)
[2018-09-13] MEDS: MULTIVITAMIN with MINERAL TABLET. PO SCH (14:00)
[2018-09-13] MEDS: SENNOSIDES/DOCUSATE 8.6/50MG TABLET. PO SCH (14:00)
--- NOTE | 2018-09-13 14:35 | NUR ---
Arrived to unit by bed from PACU. Awake with no c/o at this time. Left leg elevated on pillow with ice pack. Left knee dressing is d/i with IAC with Hemovac drain and CHARLY dressing. Pedal pulses + bilaterally, and warm touch. Legs are numb at this time due spinal sedation. States feels pressure on palpation. CRISTELA and SCD on right leg and ATSHA on left foot. IVF's intact and infusing. O2 at 2 l per n/c. Oriented to room and controls. Side rails up x's 2 with call light in reach. at bedside. Cont. monitor.
--- NOTE | 2018-09-13 14:54 | RAD ---
EXAM: AP and lateral views of the left knee DATE: 09/13/2018 1:13 PM INDICATION: POST OP KNEE REPLACEMENT COMPARISON: No Prior FINDINGS: Changes of left total knee arthroplasty are now seen apparent eccentric positioning of the tibial stem on the AP view may be projectional. Otherwise left total knee arthroplasty in good alignment without definite hardware complication or fracture. Expected postoperative soft tissue changes including intra-articular gas and drain. No evidence of acute fracture or dislocation. IMPRESSION: 1. Left total knee arthroplasty is now seen. Mild eccentric positioning of the left tibial stem may be projectional. 2. No fracture. Electronically signed by: Siva Bales MD (09/13/2018 2:51 PM) [facility]
[2018-09-13] MEDS: oxyCODONE/APAP 5/325 1 TAB TABLET PO PRN (15:38)
[2018-09-13] MEDS: TAMSULOSIN 0.4 MG CAP.ER.24H. PO SCH (15:38)
[2018-09-13] MEDS: buPROPion XL 150 MG TAB.ER.24H. PO SCH (15:39)
[2018-09-13] MEDS: PANTOPRAZOLE 40 MG TABLET.DR. PO SCH (15:41)
[2018-09-13] MEDS: FERROUS SULFATE 325 MG TABLET. PO SCH (15:49)
[2018-09-13] MEDS: ONDANSETRON PF 4 MG/2 ML VIAL. IV SCH (16:34)
[2018-09-13] MEDS: ONDANSETRON ODT 4 MG TAB.RAPDIS. PO SCH (16:34)
[2018-09-13] MEDS: KETOROLAC 30MG VIAL 30 MG, BUPIVACAINE MPF 0.25% 20 ML, EPINEPHrine 0.5 MG in TOTAL VOL... INT ART SCH (17:44)
[2018-09-13] MEDS: ASPIRIN ENTERIC COATED 325 MG TABLET.DR. PO SCH (21:12)
[2018-09-13] MEDS: ZOLPIDEM 5 MG TABLET. PO PRN ×2 (21:12→23:17)
[2018-09-14] VITALS (9 sets, daily range): BP systolic 95–143; BP diastolic 59–77
[2018-09-14] MEDS: KETOROLAC 30MG VIAL 30 MG, BUPIVACAINE MPF 0.25% 20 ML, EPINEPHrine 0.5 MG in TOTAL VOL... INT ART SCH (04:59)
--- NOTE | 2018-09-14 05:10 | NUR ---
Stood at bedside to void. Patient is weak and painful. Fentanyl given IVP. IAC started also. Requested to wear O2 at 4l/nc instead of Cpap. Temp 99. , encouraged IS.
[2018-09-14] MEDS: ONDANSETRON ODT 4 MG TAB.RAPDIS. PO SCH ×3 (06:00→12:00)
[2018-09-14] MEDS: ONDANSETRON PF 4 MG/2 ML VIAL. IV SCH ×3 (06:00→12:00)
[2018-09-14] MEDS ORDERED: MAGNESIUM HYDROXIDE 2,400 MG/30 ML ORAL.SUSP. PO PRN (06:00)
--- NOTE | 2018-09-14 07:19 | PDOC ---
ORTHO PROGRESS NOTES Subjective Patient a little sleepy this morning but with minimal c/o pain. Post-op Day: 1 Procedure L TKA Vitals Vital Signs Date Time Temp Pulse Resp B/P (MAP) Pulse Ox O2 Delivery O2 Flow Rate FiO2 09/14/18 06:26 99.0 106 20 117/71 (86) 95 Nasal Cannula 4.0 99.0 Assessment and Plan POD #1 S/P L TKA Patient moving extremities well motor and sensory intact distally dressing with small amount of dried blood visible Patient with 180cc output from drain with keep clamped for another hour then release. Labs not available at this time. PT today. ELBA TERRY APRN Sep 14, 2018 07:19
[2018-09-14] MEDS: PANTOPRAZOLE 40 MG TABLET.DR. PO SCH (07:23)
[2018-09-14 07:35] LABS: HEMOGLOBIN 12.3 g/dL (13.0-17.5); RED BLOOD COUNT 4.29 x10^6/uL (4.30-5.70); RED CELL DISTRIBUTION WIDTH 14.5 % (11.5-14.5); WHITE BLOOD COUNT 7.8 x10^3/uL (4.0-11.0)
--- NOTE | 2018-09-14 08:00 | NUR ---
he was awakened this am; he was confused to place an time. he thought he was in [place] and had not had surgery. he was drowsy but aroused easily. o2 was reapplied at 1l and o2 sat went up to 94-96%. he denies pain at this time.
[2018-09-14] MEDS: BACLOFEN 10 MG TABLET. PO SCH ×4 (08:30→21:00)
[2018-09-14] MEDS: FERROUS SULFATE 325 MG TABLET. PO SCH ×2 (08:32→17:33)
[2018-09-14] MEDS: DULoxetine HCL 30 MG CAPSULE.DR PO SCH (08:32)
[2018-09-14] MEDS: ASPIRIN ENTERIC COATED 325 MG TABLET.DR. PO SCH ×2 (08:32→21:13)
[2018-09-14] MEDS: MULTIVITAMIN with MINERAL TABLET. PO SCH (08:32)
[2018-09-14] MEDS: SENNOSIDES/DOCUSATE 8.6/50MG TABLET. PO SCH (08:32)
[2018-09-14] MEDS: TAMSULOSIN 0.4 MG CAP.ER.24H. PO SCH (08:32)
[2018-09-14] MEDS: buPROPion XL 150 MG TAB.ER.24H. PO SCH (08:33)
[2018-09-14] MEDS: MELOXICAM 7.5 MG TABLET PO SCH (08:33)
--- NOTE | 2018-09-14 10:03 | PDOC ---
PROGRESS NOTES Subjective Subjective Pain controlled. On his way to and got lightheaded in the hallway. BP was 95/ 60s at the time. Lisinopril held. Bronson better sitting down. Encourage PO fluids. Likely related to narcotics, blood loss, etc. and will resolve. Objective Vital Signs Vital Signs Date Time Temp Pulse Resp B/P (MAP) Pulse Ox O2 Delivery O2 Flow Rate FiO2 09/14/18 06:26 99.0 106 20 117/71 (86) 95 Nasal Cannula 4.0 99.0 Physical Exam Dressing intact and dry. Hemovac and pain catheter in place. Thigh and calf soft. Good active range of motion of foot including dorsiflexion and plantar flexion. Cap refill at toes intact. No signs of compartment syndrome, DVT or neurovascular injury. Labs Laboratory Tests Test 09/14/18 06:35 White Blood Count 7.8 x10^3/uL (4.0-11.0) Red Blood Count 4.29 x10^6/uL (4.30-5.70) Hemoglobin 12.3 g/dL (13.0-17.5) Hematocrit 37.0 % (39.0-53.0) Mean Corpuscular Volume 86 fL (79-100) Mean Corpuscular Hemoglobin 29 pg (25-35) Mean Corpuscular Hemoglobin Concent 33 g/dL (31-37) Red Cell Distribution Width 14.5 % (11.5-14.5) Platelet Count 162 x10^3/uL (140-400) Laboratory Tests Test 09/14/18 06:35 White Blood Count 7.8 x10^3/uL (4.0-11.0) Red Blood Count 4.29 x10^6/uL (4.30-5.70) Hemoglobin 12.3 g/dL (13.0-17.5) Hematocrit 37.0 % (39.0-53.0) Mean Corpuscular Volume 86 fL (79-100) Mean Corpuscular Hemoglobin 29 pg (25-35) Mean Corpuscular Hemoglobin Concent 33 g/dL (31-37) Red Cell Distribution Width 14.5 % (11.5-14.5) Platelet Count 162 x10^3/uL (140-400) Imaging Postop X-rays reviewed by me. Satisfactory TKA alignment, without apparent complications. I agree with radiologist, possible rotational/projectional distortion. Leg alignment looks great clinically. Assessment Assessment POD 1 TKA Plan Plan of Care Continue POC. As above. ADRIANNE BYRD MD Sep 14, 2018 10:03
--- NOTE | 2018-09-14 10:15 | NUR ---
on the way to PT; became dizzy and feels weak. blood pressure is 95/67 rate 92 o2 o at 1l/nc Dr. Luna here. proceeds to therapy in recliner and will do stretch exercises. Addendum: 09/14/18 at 1611 by BONILLA SHOOK RN he is more oriented to place but is still confused to time
--- NOTE | 2018-09-14 11:18 | NUR ---
rests quietly in bed after therapy completed. 500 cc normal saline bolus started. states "still feels like in fog" falls asleep quickly if left alone. blood pressure is 105/[address] [facility]. after resting for 15 min and rests with eyes closed blood pressure is 99/65. bolus continues
[2018-09-14] MEDS ORDERED: ONDANSETRON PF 4 MG/2 ML VIAL. IV PRN (12:00)
[2018-09-14] MEDS ORDERED: ONDANSETRON ODT 4 MG TAB.RAPDIS. PO PRN (12:00)
--- NOTE | 2018-09-14 14:00 | NUR ---
returned from therapy and is complaining of severe pain 6-8. informed would give 1 percocet to see if it helps. would prefer not to give more if not needed.
[2018-09-14] MEDS: oxyCODONE/APAP 5/325 1 TAB TABLET PO PRN (14:10)
--- NOTE | 2018-09-14 14:35 | NUR ---
found attempting to get out of the recliner by himself. he is feeling better but is forgetful. forgot to use call light and is calling his and daughter. pain is better. original surgical dressing removed; tolerated well. IAC (blue tip intact) and Hemovac removed; tolerated well. spilled urianl and pajama bottoms exchanged for hospital pants.
[2018-09-14] MEDS ORDERED: BISACODYL 10 MG SUPP.RECT. PR PRN (16:00)
--- NOTE | 2018-09-14 16:00 | NUR ---
bed alarm went off; sitting on side of bed. forgot he was here. again reminded to use call light for getting up. no further complaints of pain.
[2018-09-15 05:00] VITALS: BP 134/73
--- NOTE | 2018-09-15 06:39 | NUR ---
Slept in bursts. Frequent urination per urinal. Hemovac and IAC sites are saturated w/ bloody drainage. Cleansed w/ Chloraprep and ABD applied. Linens changed and PJ pants also. BP 134/73. 96% RA. Oriented x 3. "I can't believe I thought that I was in [place] yesterday."
[2018-09-15] MEDS: PANTOPRAZOLE 40 MG TABLET.DR. PO SCH (07:21)
[2018-09-15 07:39] LABS: HEMATOCRIT 32.7 % (39.0-53.0); HEMOGLOBIN 11.1 g/dL (13.0-17.5)
[2018-09-15] MEDS: DULoxetine HCL 30 MG CAPSULE.DR PO SCH (08:38)
[2018-09-15] MEDS: MELOXICAM 7.5 MG TABLET PO SCH (08:38)
[2018-09-15] MEDS: MULTIVITAMIN with MINERAL TABLET. PO SCH (08:38)
[2018-09-15] MEDS: TAMSULOSIN 0.4 MG CAP.ER.24H. PO SCH (08:38)
[2018-09-15] MEDS: ASPIRIN ENTERIC COATED 325 MG TABLET.DR. PO SCH ×2 (08:38→21:15)
[2018-09-15] MEDS: BACLOFEN 10 MG TABLET. PO SCH ×4 (08:38→21:15)
[2018-09-15] MEDS: SENNOSIDES/DOCUSATE 8.6/50MG TABLET. PO SCH (08:38)
[2018-09-15] MEDS: FERROUS SULFATE 325 MG TABLET. PO SCH ×2 (08:38→16:48)
[2018-09-15] MEDS: buPROPion XL 150 MG TAB.ER.24H. PO SCH (08:39)
[2018-09-15] MEDS: oxyCODONE/APAP 5/325 1 TAB TABLET PO PRN ×2 (11:17→21:16)
--- NOTE | 2018-09-15 13:05 | PDOC ---
PROGRESS NOTES Subjective Subjective Pain controlled. No major complaints. Feeling much better than yesterday. Objective Vital Signs Vital Signs Date Time Temp Pulse Resp B/P (MAP) Pulse Ox O2 Delivery O2 Flow Rate FiO2 09/15/18 11:17 Room Air 09/15/18 05:00 98.7 92 20 134/73 (93) 96 98.7 09/14/18 20:00 3.0 Physical Exam Postop dressing and pain catheter have been removed. Spotty bloody drainage only. Calf soft and nontender. Good AROM of ankle. Minimal erythema/warmth. Labs Laboratory Tests Test 09/14/18 06:35 09/15/18 06:47 White Blood Count 7.8 x10^3/uL (4.0-11.0) Red Blood Count 4.29 x10^6/uL (4.30-5.70) Hemoglobin 12.3 g/dL (13.0-17.5) 11.1 g/dL (13.0-17.5) Hematocrit 37.0 % (39.0-53.0) 32.7 % (39.0-53.0) Mean Corpuscular Volume 86 fL (79-100) Mean Corpuscular Hemoglobin 29 pg (25-35) Mean Corpuscular Hemoglobin Concent 33 g/dL (31-37) 34 g/dL (31-37) Red Cell Distribution Width 14.5 % (11.5-14.5) Platelet Count 162 x10^3/uL (140-400) Laboratory Tests Test 09/15/18 06:47 Hemoglobin 11.1 g/dL (13.0-17.5) Hematocrit 32.7 % (39.0-53.0) Mean Corpuscular Hemoglobin Concent 34 g/dL (31-37) Assessment Assessment POD #2 TKA Plan Plan of Care Continue POC. Discharge planning for tomorrow. Aspirin 325 mg po BID and mobilization for DVT prophylaxis. ADRIANNE BYRD MD Sep 15, 2018 13:05
--- NOTE | 2018-09-15 16:20 | NUR ---
Erwin is more coherent today. following instructions regarding calling for help. oriented to place and person and situation. Hemovac insertion site continues to seep; cleansed with chlor prep then 4x4 then wrapped with Kerlix.
[2018-09-15 17:30] VITALS: BP 110/71
--- NOTE | 2018-09-15 18:06 | PATHOLOGY ---
[facility] Accession Number: [id number] . 01 Material submitted: . LEFT KNEE BONES . 01 Clinical history: . Osteoarthritis . 02 Diagnosis: Segments of bone and soft tissue, left total knee arthroplasty: - Advanced degenerative arthritis. (JPM:dean; 09/15/2018) MBR/09/15/2018 . 02 Electronically signed: . Joaquin Arthur MD, Pathologist NPI- [id number] . 01 Gross description: . The specimen is received in formalin, labeled "Erwin Escobar, left knee bones", consists of multiple segments of mcgraw-pink bone, yellow lobulated adipose tissue, and thompson-white fibrous tissue measuring 15 x 10.0 x 2.5 cm in aggregate. Recognizable portion of tibia plateau, patella and meniscus is identified. Eburnation and peripheral osteophytes are present. Concrete Conveyor Operator tissue is submitted in A1 after decalcification. ([facility]; 09/13/2018) SHS/SHS . 02 Pathologist provided ICD-10: M17.12 . 02 CPT . 374017, [id number] Specimen Comment: A courtesy copy of this report has been sent to Specimen Comment: [phone], . Specimen Comment: Report sent to / DR GLASGOW Performed at: 01 [facility] [address], [place] [id number] MD Douglas Han MD Phone: [phone] Performed at: 02 [facility] [address], [place] [id number] MD Joaquin Arthur MD Phone: [phone]
[2018-09-16] MEDS: oxyCODONE/APAP 5/325 1 TAB TABLET PO PRN (01:54)
[2018-09-16 05:20] VITALS: BP 103/69
--- NOTE | 2018-09-16 05:42 | NUR ---
Patient called nurse in room and stated everything was to tight on leg so he pulled all the dressings off. no bleeding noted but CHARLY was pulled apart. dressing left off and tubing reattached to CHARLY Addendum: 09/16/18 at 0547 by BRIGITTE COLLINS RN Amended: Links added.
[2018-09-16 06:33] LABS: HEMOGLOBIN 11.1 g/dL (13.0-17.5)
[2018-09-16] MEDS: buPROPion XL 150 MG TAB.ER.24H. PO SCH (08:07)
[2018-09-16] MEDS: ASPIRIN ENTERIC COATED 325 MG TABLET.DR. PO SCH (08:07)
[2018-09-16] MEDS: FERROUS SULFATE 325 MG TABLET. PO SCH (08:08)
[2018-09-16] MEDS: DULoxetine HCL 30 MG CAPSULE.DR PO SCH (08:08)
[2018-09-16] MEDS: PANTOPRAZOLE 40 MG TABLET.DR. PO SCH (08:08)
[2018-09-16] MEDS: TAMSULOSIN 0.4 MG CAP.ER.24H. PO SCH (08:08)
[2018-09-16] MEDS: SENNOSIDES/DOCUSATE 8.6/50MG TABLET. PO SCH (08:08)
[2018-09-16] MEDS: MELOXICAM 7.5 MG TABLET PO SCH (08:08)
[2018-09-16] MEDS: BACLOFEN 10 MG TABLET. PO SCH ×2 (08:09→13:10)
[2018-09-16] MEDS: MULTIVITAMIN with MINERAL TABLET. PO SCH (08:12)
--- NOTE | 2018-09-16 12:15 | PDOC ---
PROGRESS NOTES Subjective Subjective No complaints. Planning on discharge today to home. Objective Vital Signs Vital Signs Date Time Temp Pulse Resp B/P (MAP) Pulse Ox O2 Delivery O2 Flow Rate FiO2 09/16/18 08:00 Room Air 09/16/18 05:20 98.1 76 20 103/69 (80) 96 3.0 98.1 Physical Exam CHARLY intact and dry. Good AROM ankle. Calf soft and nontender, some ecchymosis near joint, not concerning. Pankaj's neg. Minimal warmth or erythema. Labs Laboratory Tests Test 09/15/18 06:47 09/16/18 05:30 Hemoglobin 11.1 g/dL (13.0-17.5) 11.1 g/dL (13.0-17.5) Hematocrit 32.7 % (39.0-53.0) 33.0 % (39.0-53.0) Mean Corpuscular Hemoglobin Concent 34 g/dL (31-37) 34 g/dL (31-37) Laboratory Tests Test 09/16/18 05:30 Hemoglobin 11.1 g/dL (13.0-17.5) Hematocrit 33.0 % (39.0-53.0) Mean Corpuscular Hemoglobin Concent 34 g/dL (31-37) Assessment Assessment POD #3 TKA Plan Plan of Care Discharge planning for today. Continue PT and DVT prophylaxis. F/U 10-14 days in office. ADRIANNE BYRD MD Sep 16, 2018 12:15
[2018-09-16] MEDS ORDERED: OXYC1TAB15 PO (12:19)
[2018-09-16] MEDS ORDERED: MELO7.5T29 PO (12:19)
--- NOTE | 2018-09-16 12:23 | DISCH ---
DISCHARGE WITH HOME HEALTH DISCHARGE INFORMATION: Discharge Date: Sep 16, 2018 Final Diagnosis: left knee osteoarthritis, now s/p left total knee arthroplasty Condition on Discharge: Stable HOME HEALTH: Face to Face: I certify this patient is under my care and that I, or a nurse practitioner or physician's assistant counsel working with me, had a face to face encounter that meets the physician face to face encounter requirements with this patient on []. Medical Complications: S/P Joint Replacement Physical Therapy For: Evalulation/Treatment Occupational Therapy For: Evaluation/Treatment Pt Meets Homebound Status: Unsteady balance w/ amb,, Limited distance walking POST DISCHARGE ORDERS: Activity Instructions for Disc: Activity as tolerated Weight Bearing Status after Di: As tolerated Bathing Instructions: Shower-keep dressing dry, No Tub Bath until see Dr. DOYLE AFTER DISCHARGE: Regular Wound/Incision Care: Ice to area for comfort, Keep wound/cast CDI, Keep wound elevated, Do not change dressing, Other, see below (Leave 2 inches of tail on dressing, trim the remaining tail of the CHARLY on POD 7. Throw away tail and the device. ) TREATMENT/EQUIPMENT ORDERS: Adaptive Equipment Issued: Front wheeled walker CERTIFICATION STATEMENT: Certification Statement: Certification Statement: Based on the above finding, I certify that this patient is confined to the home and needs intermittent fci care, physical therapy and/or speech therapy, or continues to need occupational therapy.~ This patient is under my care, and I have initiated the establishment of the plan of care.~ This patient will be followed by myself or a community physician who will periodically review the plan of care. Home Meds Active Scripts Oxycodone/Apap 5-325 (PERCOCET 5-325 MG TABLET ) 1 Each Tablet, 2 TAB PO PRN Q4HRS PRN for SEVERE PAIN for 7 Days, #40 TAB one or two tablets by mouth, every 4 hours as needed for pain Prov:ADRIANNE BYRD MD 09/16/18 Meloxicam (MELOXICAM) 7.5 Mg Tablet, 15 MG PO DAILY for pain and swelling, #30 TAB Prov:ADRIANNE BYRD MD 09/16/18 Reported Medications Ibuprofen (IBUPROFEN) 600 Mg Tablet, 600 MG PO PRN Q6HRS PRN for INFLAMMATION, TAB 08/22/18 Tamsulosin Hcl (TAMSULOSIN HCL) 0.4 Mg Cap.er.24h, 0.4 MG PO DAILY for daily, TAB 08/22/18 Bupropion Hcl (BUPROPION XL) 300 Mg Tab.er.24h, 300 MG PO DAILY07 for depression , TAB.SR 08/22/18 Baclofen (BACLOFEN) 20 Mg Tablet, 20 MG PO QID for MUSCLE RELAXER, #30 TAB 0 Refills 08/22/18 Omeprazole (PRILOSEC) 20 Mg Capsule., 1 CAP PO DAILY, #90 CAP 1 Refill 06/27/15 Duloxetine Hcl (CYMBALTA) 60 Mg Capsule.dr, 1 CAP PO DAILY, #90 CAP 3 Refills 06/27/15 ADRIANNE BYRD MD Sep 16, 2018 12:23
[2018-09-16 12:45] VITALS: BP 121/72
[2018-09-16] MEDS ORDERED: ASPI325T11 PO (13:57)
--- NOTE | 2018-09-16 14:50 | NUR ---
Demonstrated dressing change at drain site with patient and . Extra supplies given. Both verbalized understanding.
--- NOTE | 2018-09-16 15:40 | NUR ---
Discharge instructions given with prescriptions. Answered questions and concerns. Verbalized understanding. Pt discharged home with spouse.
--- NOTE | 2018-10-11 11:44 | PDOC3 ---
Discharge Summary Visit Information Date of Admission: Sep 13, 2018 Date of Discharge: Sep 16, 2018 Admitting Diagnosis: knee osteoarthritis Brief Hospital Course Allergies Allergies Coded Allergies Type Severity Reaction Last Updated Verified No Known Drug Allergies 09/13/18 No Brief Hospital Course 72 year old who presented with knee osteoarthritis, for elective total knee arthroplasty. The patient underwent total knee arthroplasty under general anesthesia the day of admission. Perioperative antibiotics and DVT prophylaxis were used. Postoperatively physical therapy and case management were consulted. The patient progressed and is stable for discharge. Discharge Information Condition at Discharge: Stable Follow Up: Weeks Disposition/Orders: D/C to Home w/ HH Scheduled Aspirin (Aspirin Ec), 325 MG PO BID, (Reported) Baclofen (Baclofen), 20 MG PO QID, (Reported) Bupropion Hcl (Bupropion Xl), 300 MG PO DAILY07, (Reported) Duloxetine Hcl (Cymbalta), 1 CAP PO DAILY, (Reported) Meloxicam (Meloxicam), 15 MG PO DAILY Omeprazole (Prilosec), 1 CAP PO DAILY, (Reported) Tamsulosin Hcl (Tamsulosin Hcl), 0.4 MG PO DAILY, (Reported) Scheduled PRN Oxycodone/Apap 5-325 (Percocet 5-325 Mg Tablet ), 2 TAB PO PRN Q4HRS PRN for SEVERE PAIN Patient Instructions Patient Instructions Patient Instructions Continue to WBAT with walker. Keep dressing dry and intact. F/U with Dr. Luna in 10-14 days. Call for appointment. Physical therapy for TKA Continue DVT prophylaxis. ADRIANNE LUNA MD Oct 11, 2018 11:43
== END 2018-09-16 15:40 | disposition home health service (06) | DRG 470 ==
LOC: OPSVCIP 06:51 → 4 SOUTHEST 14:36
PROVIDERS: ADMIT Orthopaedic Surgery; ATTEND Orthopaedic Surgery
PROC: 0SRD069 Replacement of Left Knee Joint with Oxidized Zirconium on Polyethylene Synthetic Substitute, Cemented, Open Approach (ICD-10-PCS; principal; 2018-09-13 09:45)
DX: M17.12 Unilateral primary osteoarthritis, left knee (principal); F32.9 Major depressive disorder, single episode, unspecified; G57.90 Unspecified mononeuropathy of unspecified lower limb; Z96.651 Presence of right artificial knee joint; Z96.643 Presence of artificial hip joint, bilateral; Z98.1 Arthrodesis status; Z79.899 Other long term (current) drug therapy; M79.7 Fibromyalgia
CPT/HCPCS: 36415; 73560; 85014; 85018; 85027; 86850; 86900; 86901; 88305; 88311; C1713; J0171; J0696; J1100; J1200; J1885; J2001; J2250; J2270; J2405; J2704; J2795; J3010; J3260; J3370; J3490; J7030; J7120; 97116; 97150; 97530; 97535; A4461; C1769

== ENCOUNTER 2018-11-06 18:49 | Emergency (ER) | payer MEDICARE ==
[~2018-11-06] VITALS: Ht 177.8 cm; Wt 95.3 kg
[~2018-11-06 18:49] MED LIST changes: +ASPI325T11 PO; -DEXAMETHASONE SOD PHOS 20 MG/5 ML VIAL. ONE; -FAMOTIDINE 20 MG/2 ML VIAL ONE; -HYDROcodone/APAP 7.5/325MG 1 TAB TABLET PO PRN; -LIDOCAINE 2% PF 5 ML VIAL. ONE; +MELO7.5T29 PO; -MELOXICAM 7.5 MG TABLET PO PRN; -MORPHINE SULFATE 5 MG, KETOROLAC 30MG VIAL 30 MG, ROPIVacaine 0.5% PF 60 ML, EPINEPHrin... INT ART ONE; -ONDANSETRON PF 4 MG/2 ML VIAL. ONE; +OXYC1TAB15 PO; -PROPOFOL 0 ML IV ONE; -ROCURONIUM 50 MG/5 ML VIAL. ONE; -TRANEXAMIC ACID 1,000 MG in IV NS 50ML -- 1ST BAG INJ ONE
[2018-11-06] MEDS ORDERED: IV NORMAL SALINE 1000ML BAG 1,000 ML IV ONE ×2 (19:30)
[2018-11-06 19:32] LABS: BASO % 0 % (0-3); EOS # 0.3 x10^3/uL (0.0-0.7); EOS % 5 % (0-3); HEMATOCRIT 39.2 % (39.0-53.0); HEMOGLOBIN 12.6 g/dL (13.0-17.5); LYMPH # 1.5 x10^3/uL (1.0-4.8); LYMPH % 23 % (24-48); MEAN CORPUSCULAR HEMOGLOBIN 28 pg (25-35); MEAN CORPUSCULAR HGB CONC 32 g/dL (31-37); MEAN CORPUSCULAR VOLUME 85 fL (79-100); MONO # 0.5 x10^3/uL (0.0-1.1); MONO % 7 % (0-9); NEUT # 4.2 x10^3uL (1.8-7.7); NEUT % 65 % (31-73); PLATELET COUNT 190 x10^3/uL (140-400); RED BLOOD COUNT 4.59 x10^6/uL (4.30-5.70); RED CELL DISTRIBUTION WIDTH 15.8 % (11.5-14.5); WHITE BLOOD COUNT 6.5 x10^3/uL (4.0-11.0)
[2018-11-06 19:42] LABS: CALCIUM 8.6 mg/dL (8.5-10.1); CREATININE 1.3 mg/dL (0.7-1.3); GFR 54.3; POTASSIUM 4.2 mmol/L (3.5-5.1)
[2018-11-06 19:48] LABS: ALBUMIN 3.7 g/dL (3.4-5.0); ALBUMIN/GLOBULIN RATIO 1.2 (1.0-1.7); MAGNESIUM 1.8 mg/dL (1.8-2.4); TOTAL BILIRUBIN 0.4 mg/dL (0.2-1.0); TOTAL PROTEIN 6.7 g/dL (6.4-8.2)
--- NOTE | 2018-11-06 20:23 | RAD ---
CT head without contrast: Reason for examination: Fell with head and neck pain. Dizziness. Axial images were obtained through the brain. No contrast was administered. Ventricular systems are mildly prominent but symmetric and consistent with patient's advanced age and mild atrophy. No midline shift is seen. There is no evidence of intracranial hemorrhage, infarct, mass or edema. No abnormalities of seen at the orbits. The paranasal sinuses and the mastoid air cells are clear. No acute abnormality seen in the skull. IMPRESSION: No acute intracranial abnormality evident. CT cervical spine without contrast: Helical images were obtained through the cervical spine from skull base through the thoracic apices with no contrast administered. Reconstruction was performed in sagittal and coronal planes. The C1 ring appears to be intact. The odontoid process is intact and normally centered between the lateral masses of C1. There has been anterior fusion at the fourth through sixth levels with anterior plate and screws present. The remaining cervical vertebral bodies are normally aligned anteriorly and posteriorly. There is a mild anterolisthesis C7 on T1. Posterior elements are intact. There are severe degenerative changes present from the base of the skull through the T7 vertebral body. There is at least a mild stenosis at the central canal at the C5-6 level. Prevertebral soft tissues are normal. IMPRESSION: Postop anterior fusion from C4 through C6. Severe degenerative changes throughout the cervical spine. No acute fracture or subluxation. Exposure: One or more of the following individualized dose reduction techniques were utilized for this examination: 1. Automated exposure control 2. Adjustment of the mA and/or kV according to patient size 3. Use of iterative reconstruction technique. Electronically signed by: Anjali Crvaen MD (11/06/2018 8:20 PM) [facility]
[2018-11-06 20:42] LABS: BILIRUBIN,URINE NEGATIVE (NEG); CLARITY,URINE CLOUDY; COLOR,URINE YELLOW; NITRITE,URINE NEGATIVE (NEG); PROTEIN,URINE NEGATIVE (NEG-TRACE); UROBILINOGEN,URINE 0.2 mg/dL (0.2 mg/dL)
[2018-11-06 20:46] LABS: BACTERIA,URINE 0 /HPF (0-FEW); RBC,URINE 0 /HPF (0-2); SQUAMOUS EPITHELIAL CELL,UR OCC /LPF; WBC,URINE RARE /HPF (0-4)
--- NOTE | 2018-11-06 21:15 | RAD ---
Left lower extremity venous Doppler: Reason for examination: Left leg swelling. Postop knee surgery. The left lower extremity venous system was evaluated from the common femoral and greater saphenous veins distally to the calf veins with grayscale imaging, color-flow imaging and spectral analysis. There is no evidence of venous thrombosis. There is normal response of the venous system to compression and augmentation with normal blood flow present. Note is made of a complex fluid collection posterior to the knee measuring 5.2 x 1.8 x 1.7 cm in greatest dimension which may represent a popliteal cyst however considering recent knee surgery postop hematoma cannot be excluded. There is soft tissue edema. IMPRESSION: No deep venous thrombosis in left lower extremity. Complex fluid collection measuring 5.2 x 1.8 x 1.7 cm in greatest dimension which could represent a popliteal cyst however considering recent surgery, postoperative hematoma or abscess cannot be excluded. Soft tissue edema is present. Electronically signed by: Anjali Craven MD (11/06/2018 9:12 PM) [facility]
[2018-11-06] MEDS ORDERED: CONTRAST GIVEN. MC PRN (21:45)
[2018-11-06] MEDS ORDERED: IOHEXOL 350 MG/ML 100 ML VIAL. IV ONE (22:00)
--- NOTE | 2018-11-06 22:13 | RAD ---
Examination: CT ANGIOGRAPHY CHEST History: chest tightness; Omni 350, 75ml Comparison/Correlation: None Findings: Axial images of chest were obtained following IV contrast according to pulmonary arteriography protocol. Sagittal and coronal reformatted images were provided. MIP images provided. Pulmonary arterial vasculature is normal with no thromboembolic disease. No infiltrates. Costophrenic angles are not fully included on this exam. Thoracic aorta is unremarkable. No enlarged thoracic lymph nodes. Postoperative cervical spine fusion noted. No upper to mid thoracic level pleural effusion. No pericardial effusion. Partially visualized upper abdomen is unremarkable. There is a very small to characterize left hepatic dome lesion which probably represents a cyst. Impression: No pulmonary arterial thromboembolic disease. No infiltrates involving the visualized lung joshi. PQRS Compliance Statement: One or more of the following individualized dose reduction techniques were utilized for this examination: 1. Automated exposure control 2. Adjustment of the mA and/or kV according to patient size 3. Use of iterative reconstruction technique Electronically signed by: Renato Cabezas MD (11/06/2018 10:10 PM) [facility]
[2018-11-06] MEDS ORDERED: NEOMY/BACITR/POLYMYXIN OINT PACKET. TP ONE (23:00)
[2018-11-06] MEDS ORDERED: LIDOCAINE 2%/EPI 1:100,000 20 ML VIAL. IJ ONE (23:00)
[2018-11-07] MEDS ORDERED: MECL25TA3 PO (01:06)
--- NOTE | 2018-11-07 01:06 | PHYS DOC ---
Past Medical History Past Medical History: Fibromyalgia, Other Additional Past Medical Histor: PTSD, DEGENERATIVE DISC DISEASE, NEUROPATHY, C-DIF Past Surgical History: Hip Replacement, Knee Replacement, Other Additional Past Surgical Histo: LUBAR FUSION, CERVICAL SURGERY WITH HARDWARE Alcohol Use: Occasionally Drug Use: None Adult General Chief Complaint Chief Complaint: DIZZY/LIGHT HEADED HPI HPI 72 y/o male presents with report of dizziness causing him to fall tonight. Patient also with history of recent left knee replacement. He also thinks that his leg was a little stiff which also contributed to the fall. Reports some increased swelling and tenderness since surgery. Denies chest pain or palpitations. Denies pleuritic pain. Denies knee pain. Denies hip pain. Denies loss of consciousness. Reports last tetanus shot was less than 5 years ago. Denies other injury. Review of Systems Review of Systems Constitutional: Denies fever or chills [] Eyes: Denies change in visual acuity, redness, or eye pain [] HENT: Denies nasal congestion or sore throat [] Respiratory: Denies cough or shortness of breath [] Cardiovascular: Denies chest pain or palpitations GI: Denies abdominal pain, nausea, vomiting, or diarrhea [] : Denies dysuria or hematuria [] Musculoskeletal: Denies back pain or joint pain [] Integument: Denies rash; reports laceration Neurologic: Denies headache, focal weakness or sensory changes [] Complete systems were reviewed and found to be within normal limits, except as documented in this note. Current Medications Current Medications Current Medications Medications (Trade) Dose Ordered Sig/Bre Start Time Stop Time Status Last Admin Dose Admin Info (CONTRAST GIVEN -- Rx MONITORING) 1 each PRN DAILY PRN 11/06/18 21:45 11/07/18 11:03 DC Iohexol (Omnipaque 350 Mg/ml) 75 ml 1X ONCE 11/06/18 22:00 11/06/18 22:01 DC 11/06/18 21:44 75 ML Lidocaine/ Epinephrine (LIDOCAINE 2%-EPI 1:100,000 multi-dose) 20 ml 1X ONCE 11/06/18 23:00 11/06/18 23:01 DC Neomycin/ Polymyxin/ Bacitracin (Triple Antibiotic Ointment) 1 pkt 1X ONCE 11/06/18 23:00 11/06/18 23:01 DC Sodium Chloride 1,000 ml @ 1,000 mls/hr 1X ONCE 11/06/18 19:30 11/06/18 20:29 DC 11/06/18 20:34 1,000 MLS/HR Allergies Allergies Allergies Coded Allergies Type Severity Reaction Last Updated Verified No Known Drug Allergies 09/13/18 No Physical Exam Physical Exam Constitutional: Well developed, well nourished, no acute distress, non-toxic appearance. [] HENT: Normocephalic, atraumatic, oropharynx moist Eyes: PERRL, EOMI, conjunctiva normal, no discharge. [] Neck: Normal range of motion, no midline tenderness, supple Cardiovascular: Heart rate regular rhythm, no murmur [] Lungs & Thorax: Bilateral breath sounds clear to auscultation [] Abdomen: Soft, no tenderness Skin: Warm, dry, no erythema, 4cm laceration to left upper lip along doreen border and extending vertically at midline Back: No tenderness, no CVA tenderness. [] Extremities: No tenderness, ROM intact, left leg swelling +3, no erythema, healed surgical incision Neurologic: Alert and oriented X 3, normal motor function, normal sensory function, no focal deficits noted. [] Psychologic: Affect normal, judgement normal, mood normal. [] Current Patient Data Vital Signs Vital Signs Date Time Temp Pulse Resp B/P (MAP) Pulse Ox O2 Delivery O2 Flow Rate FiO2 11/07/18 01:12 74 17 98 11/06/18 19:10 98.9 143/76 (98) Room Air 98.9 Lab Values Laboratory Tests Test 11/06/18 19:22 11/06/18 20:30 White Blood Count 6.5 x10^3/uL (4.0-11.0) Red Blood Count 4.59 x10^6/uL (4.30-5.70) Hemoglobin 12.6 g/dL (13.0-17.5) L Hematocrit 39.2 % (39.0-53.0) Mean Corpuscular Volume 85 fL (79-100) Mean Corpuscular Hemoglobin 28 pg (25-35) Mean Corpuscular Hemoglobin Concent 32 g/dL (31-37) Red Cell Distribution Width 15.8 % (11.5-14.5) H Platelet Count 190 x10^3/uL (140-400) Neutrophils (%) (Auto) 65 % (31-73) Lymphocytes (%) (Auto) 23 % (24-48) L Monocytes (%) (Auto) 7 % (0-9) Eosinophils (%) (Auto) 5 % (0-3) H Basophils (%) (Auto) 0 % (0-3) Neutrophils # (Auto) 4.2 x10^3uL (1.8-7.7) Lymphocytes # (Auto) 1.5 x10^3/uL (1.0-4.8) Monocytes # (Auto) 0.5 x10^3/uL (0.0-1.1) Eosinophils # (Auto) 0.3 x10^3/uL (0.0-0.7) Basophils # (Auto) 0.0 x10^3/uL (0.0-0.2) D-Dimer (Xochitl) 3.55 ug/mlFEU (0.00-0.50) H Sodium Level 140 mmol/L (136-145) Potassium Level 4.2 mmol/L (3.5-5.1) Chloride Level 103 mmol/L (98-107) Carbon Dioxide Level 26 mmol/L (21-32) Anion Gap 11 (6-14) Blood Urea Nitrogen 16 mg/dL (8-26) Creatinine 1.3 mg/dL (0.7-1.3) Estimated GFR (Cockcroft-Gault) 54.3 BUN/Creatinine Ratio 12 (6-20) Glucose Level 125 mg/dL (70-99) H Calcium Level 8.6 mg/dL (8.5-10.1) Magnesium Level 1.8 mg/dL (1.8-2.4) Total Bilirubin 0.4 mg/dL (0.2-1.0) Aspartate Amino Transferase (AST) 31 U/L (15-37) Alanine Aminotransferase (ALT) 30 U/L (16-63) Alkaline Phosphatase 80 U/L (46-116) Creatine Kinase 265 U/L (39-308) Creatine Kinase MB (Mass) 3.8 ng/mL (0.0-3.6) H Creatine Kinase MB Relative Index 1.4 % (0-4) Troponin I Quantitative < 0.017 ng/mL (0.000-0.055) Total Protein 6.7 g/dL (6.4-8.2) Albumin 3.7 g/dL (3.4-5.0) Albumin/Globulin Ratio 1.2 (1.0-1.7) Urine Collection Type U cath Urine Color Yellow Urine Clarity Cloudy Urine pH 6.0 Urine Specific [place] 1.010 Urine Protein Negative mg/dL (NEG-TRACE) Urine Glucose (UA) Negative mg/dL (NEG) Urine Ketones (Stick) Negative mg/dL (NEG) Urine Blood Negative (NEG) Urine Nitrite Negative (NEG) Urine Bilirubin Negative (NEG) Urine Urobilinogen Dipstick 0.2 mg/dL (0.2 mg/dL) Urine Leukocyte Esterase Negative (NEG) Urine RBC 0 /HPF (0-2) Urine WBC Rare /HPF (0-4) Urine Squamous Epithelial Cells Occ /LPF Urine Bacteria 0 /HPF (0-FEW) Laboratory Tests 11/06/18 19:22 Laboratory Tests 11/06/18 19:22 EKG EKG @1916 NSR at 79bpm, NO ST elevation, low voltage QRS Radiology/Procedures Radiology/Procedures PROCEDURE: VENOUS LOWER EXTREMITY LEFT Left lower extremity venous Doppler: Reason for examination: Left leg swelling. Postop knee surgery. The left lower extremity venous system was evaluated from the common femoral and greater saphenous veins distally to the calf veins with grayscale imaging, color-flow imaging and spectral analysis. There is no evidence of venous thrombosis. There is normal response of the venous system to compression and augmentation with normal blood flow present. Note is made of a complex fluid collection posterior to the knee measuring 5.2 x 1.8 x 1.7 cm in greatest dimension which may represent a popliteal cyst however considering recent knee surgery postop hematoma cannot be excluded. There is soft tissue edema. IMPRESSION: No deep venous thrombosis in left lower extremity. Complex fluid collection measuring 5.2 x 1.8 x 1.7 cm in greatest dimension which could represent a popliteal cyst however considering recent surgery, postoperative hematoma or abscess cannot be excluded. Soft tissue edema is present. Electronically signed by: Anjali Craven MD (11/06/2018 9:12 PM) [facility] PROCEDURE: CT HEAD AND CERVICAL SPINE WO CT head without contrast: Reason for examination: Fell with head and neck pain. Dizziness. Axial images were obtained through the brain. No contrast was administered. Ventricular systems are mildly prominent but symmetric and consistent with patient's advanced age and mild atrophy. No midline shift is seen. There is no evidence of intracranial hemorrhage, infarct, mass or edema. No abnormalities of seen at the orbits. The paranasal sinuses and the mastoid air cells are clear. No acute abnormality seen in the skull. IMPRESSION: No acute intracranial abnormality evident. CT cervical spine without contrast: Helical images were obtained through the cervical spine from skull base through the thoracic apices with no contrast administered. Reconstruction was performed in sagittal and coronal planes. The C1 ring appears to be intact. The odontoid process is intact and normally centered between the lateral masses of C1. There has been anterior fusion at the fourth through sixth levels with anterior plate and screws present. The remaining cervical vertebral bodies are normally aligned anteriorly and posteriorly. There is a mild anterolisthesis C7 on T1. Posterior elements are intact. There are severe degenerative changes present from the base of the skull through the T7 vertebral body. There is at least a mild stenosis at the central canal at the C5-6 level. Prevertebral soft tissues are normal. IMPRESSION: Postop anterior fusion from C4 through C6. Severe degenerative changes throughout the cervical spine. No acute fracture or subluxation. Exposure: One or more of the following individualized dose reduction techniques were utilized for this examination: 1. Automated exposure control 2. Adjustment of the mA and/or kV according to patient size 3. Use of iterative reconstruction technique. Electronically signed by: Anjali Craven MD (11/06/2018 8:20 PM) [facility] PROCEDURE: CT ANGIOGRAPHY CHEST Examination: CT ANGIOGRAPHY CHEST History: chest tightness; Omni 350, 75ml Comparison/Correlation: None Findings: Axial images of chest were obtained following IV contrast according to pulmonary arteriography protocol. Sagittal and coronal reformatted images were provided. MIP images provided. Pulmonary arterial vasculature is normal with no thromboembolic disease. No infiltrates. Costophrenic angles are not fully included on this exam. Thoracic aorta is unremarkable. No enlarged thoracic lymph nodes. Postoperative cervical spine fusion noted. No upper to mid thoracic level pleural effusion. No pericardial effusion. Partially visualized upper abdomen is unremarkable. There is a very small to characterize left hepatic dome lesion which probably represents a cyst. Impression: No pulmonary arterial thromboembolic disease. No infiltrates involving the visualized lung joshi. PQRS Compliance Statement: One or more of the following individualized dose reduction techniques were utilized for this examination: 1. Automated exposure control 2. Adjustment of the mA and/or kV according to patient size 3. Use of iterative reconstruction technique Electronically signed by: Renato Cabezas MD (11/06/2018 10:10 PM) [facility] Course & Med Decision Making Course & Med Decision Making Pertinent Labs and Imaging studies reviewed. (See chart for details) Patient presents with dizziness and fall with subsequent upper lip laceration. Denies LOC. Denies neck pain. Patient with recent surgery and continued swelling about left knee. Patient denies chest pain or SOA. Concern for DVT and possible PE. Venous doppler negative. CT head/cervical spine negative. Labs obtained and posted to chart. Troponin WNL. D-dimer elevated. CTA chest without acute process. Wound cleaned and dressed. Tetanus up to date. Patient stable for discharge home with outpatient follow-up with PCP. Discussed findings and plan with patient, who acknowledges understanding and agreement. Dragon Disclaimer Dragon Disclaimer This electronic medical record was generated, in whole or in part, using a voice recognition dictation system. Laceration/Wound Repair Laceration/Wound Repair : Wound Location: face (left upper lip) Wound's Depth, Shape: linear Wound Length (cm): 4 Wound Explored: clean (no foriegn body found) Irrigated w/ Saline (ccs): 150 Anesthesia: Lidocaine w/ Epi Volume Anesthetic (ccs): 2 Wound Debrided: minimal Wound Repaired With: sutures Suture Size/Type: 6:0 Number of Sutures: 9 Layer Closure?: Yes Sterile Dressing Applied?: Yes Progress Verbal consent obtained. Time out performed. Wound cleaned with ChloraPrep solution. Anesthesia obtained with 3ccs of lidocaine 2% with epi via 30g needle. Wound irrigated. Nylon 6-0 simple interrupted sutures applied x 9 with good cosmesis. Initial repair at the doreen border. Neosporin applied. Sterile dressing applied by RN. Patient tolerated procedure well and without difficulty. Departure Departure Impression: Primary Impression: Dizziness Additional Impressions: S/P total knee arthroplasty Lip laceration Disposition: 01 HOME, SELF-CARE Condition: STABLE Referrals: RAMSEY GLASGOW MD (PCP) Patient Instructions: Dizziness, [id number], Laceration Care, Adult, [id number] Additional Instructions: Do not soak your wound. You may shower. Clean wound daily with soap and water. Change dressing 2 times daily. Use over the counter antibiotic ointment with each dressing change. Sutures need to be removed in 5 days. Present to your family doctor or local urgent care for removal. You may also present to the ED but it will be an additional visit/charge. After suture removal you may use Vitamin E ointment to soften the wound and prevent scarring. Scripts Meclizine Hcl (MECLIZINE HCL) 25 Mg Tablet 1 TAB PO PRN TID PRN for DIZZINESS, #20 TAB Prov: ADAMA REGALADO DO 11/07/18 Problem Qualifiers Additional Impressions: S/P total knee arthroplasty Laterality: left Qualified Codes: Z96.652 - Presence of left artificial knee joint Lip laceration Encounter type: initial encounter Qualified Codes: S01.511A - Laceration without foreign body of lip, initial encounter ADAMA REGALADO DO Nov 07, 2018 01:06
[2018-11-07 01:12] VITALS: BP 132/76
--- NOTE | 2018-11-07 07:24 | EKG ---
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
== END 2018-11-07 01:15 | disposition home or self-care (01) ==
LOC: ER 18:49
DX: S01.511A Laceration without foreign body of lip, initial encounter (principal); R42 Dizziness and giddiness; Z96.652 Presence of left artificial knee joint; W18.39XA Other fall on same level, initial encounter; Y93.89 Activity, other specified; Y92.89 Other specified places as the place of occurrence of the external cause; Y99.8 Other external cause status
CPT/HCPCS: 36415; 40650; 70450; 71275; 72125; 80053; 81001; 82553; 83735; 84484; 85025; 85379; 93005; 93971; 96360; 99285; J7030; Q9967

== ENCOUNTER → 2019-02-21 | Outpatient (CLI) | payer MEDICARE ==
[~2019-02-21] MED LIST changes: +MECL25TA3 PO
[2019-02-21 11:22] LABS: BASO % 1 % (0-3); BILIRUBIN,URINE NEGATIVE (NEG); CLARITY,URINE CLEAR; COLOR,URINE YELLOW; EOS # 0.2 x10^3/uL (0.0-0.7); EOS % 4 % (0-3); HEMATOCRIT 44.2 % (39.0-53.0); LYMPH # 1.3 x10^3/uL (1.0-4.8); LYMPH % 21 % (24-48); MEAN CORPUSCULAR HEMOGLOBIN 29 pg (25-35); MEAN CORPUSCULAR HGB CONC 34 g/dL (31-37); MEAN CORPUSCULAR VOLUME 84 fL (79-100); MONO # 0.4 x10^3/uL (0.0-1.1); MONO % 7 % (0-9); NEUT % 68 % (31-73); NITRITE,URINE NEGATIVE (NEG); PLATELET COUNT 163 x10^3/uL (140-400); PROTEIN,URINE NEGATIVE (NEG-TRACE); RED BLOOD COUNT 5.24 x10^6/uL (4.30-5.70); RED CELL DISTRIBUTION WIDTH 15.8 % (11.5-14.5); UROBILINOGEN,URINE 0.2 mg/dL (0.2 mg/dL)
[2019-02-21 11:28] LABS: BACTERIA,URINE 0 /HPF (0-FEW); RBC,URINE 0 /HPF (0-2); WBC,URINE OCC /HPF (0-4)
[2019-02-21 11:31] LABS: PROTHROMBIN TIME PATIENT 13.6 SEC (11.7-14.0)
[2019-02-21 11:33] LABS: ALBUMIN 3.7 g/dL (3.4-5.0); CREATININE 1.1 mg/dL (0.7-1.3); GFR 65.6; POTASSIUM 4.3 mmol/L (3.5-5.1)
== END | disposition home or self-care (01) ==
LOC: SURGPAT 10:46
PROVIDERS: ATTEND Orthopaedic Surgery
DX: Z01.818 Encounter for other preprocedural examination (principal); M25.352 Other instability, left hip; M25.552 Pain in left hip; Z79.899 Other long term (current) drug therapy
CPT/HCPCS: 36415; 80048; 81001; 82040; 82306; 85025; 85610; 85651; 85730; 87641

== ENCOUNTER 2019-03-14 10:44 | Inpatient (IN) | payer MEDICARE ==
[~2019-03-14] VITALS: Ht 177.8 cm; Wt 95.3 kg
[~2019-03-14 10:44] MED LIST changes: +CELECOXIB 100 MG CAPSULE. PO PRN; +HYDROcodone/APAP 7.5/325MG 1 TAB TABLET PO PRN; +HYDROmorphone 2 MG/ML VIAL IV PRN; +IV RINGERS,LACTATED 1000ML 1,000 ML IV SCH; +LIDOCAINE 1% PF 2 ML VIAL. ID PRN; +MORPHINE SULFATE 2 MG/ML VIAL. IV PRN; +MORPHINE SULFATE 5 MG, KETOROLAC 30MG VIAL 30 MG, ROPIVacaine 0.5% PF 60 ML, EPINEPHrin... INT ART ONE; +ONDANSETRON PF 4 MG/2 ML VIAL. IV PRN; +PROCHLORPERAZINE 10 MG/2 ML VIAL. IV PRN; +TRANEXAMIC ACID 1,000 MG in IV NS 50ML -- 1ST BAG INJ ONE; +TRANEXAMIC ACID 1,000 MG in IV NS 50ML -- 2ND BAG INJ ONE; +fentaNYL PF VIAL 100 MCG/2 ML VIAL IV PRN
[2019-03-14 11:44] LABS: PROTHROMBIN TIME PATIENT 13.7 SEC (11.7-14.0)
[2019-03-14] MEDS ORDERED: ROCURONIUM 50 MG/5 ML VIAL. ONE ×2 (11:48→15:26)
[2019-03-14] MEDS ORDERED: fentaNYL PF VIAL 250 MCG/5 ML VIAL ONE (11:49)
[2019-03-14] MEDS ORDERED: MELOXICAM 7.5 MG TABLET PO ONE (12:00)
[2019-03-14] MEDS ORDERED: ONDANSETRON PF 4 MG/2 ML VIAL. ONE (12:20)
[2019-03-14] MEDS ORDERED: LIDOCAINE 2% PF 5 ML VIAL. ONE (12:20)
[2019-03-14] MEDS ORDERED: PROPOFOL 20 ML IV ONE (12:20)
[2019-03-14] MEDS ORDERED: DEXAMETHASONE SOD PHOS 4 MG/ML VIAL ONE (12:24)
[2019-03-14] MEDS ORDERED: FAMOTIDINE 20 MG/2 ML VIAL ONE (12:24)
--- NOTE | 2019-03-14 12:52 | HP ---
ADMIT DATE: 03/14/2019 PREOPERATIVE HISTORY AND PHYSICAL CHIEF COMPLAINT: Left hip pain and instability. HISTORY OF PRESENT ILLNESS: The patient is a 73-year-old male that had bilateral total hip arthroplasties by Dr. Wil hernández in 1993 and he is doing well following a left knee arthroplasty recently by Dr. Luna, but has had a couple of recent falls and noted abnormal movement in his left groin area and has had multiple dislocations, probably a history of about 20 altogether over the time period since his hip replacement. He has not had a dislocation for about 3 years; however, this feels unstable and he is worried about the possibility of ongoing instability especially since his falls and increasing symptoms. PAST MEDICAL HISTORY: Neuropathy, PTSD, fibromyalgia and depression. PAST SURGICAL HISTORY: Bilateral hip and total knee replacement, triceps tendon repair, carpal tunnel release, cervical fusion and lumbar fusions x 2. FAMILY HISTORY: Mother and father both and no contributory family history. SOCIAL HISTORY: Denies smoking, alcohol or drug use. MEDICATIONS: List is reviewed. ALLERGIES: He has no known drug allergies. REVIEW OF SYSTEMS: Denies any chest pain, shortness of breath, fever, chills, other constitutional symptoms. He does indicate previous difficulty with anesthesia and requested the possibility of an epidural spinal. PHYSICAL EXAMINATION: VITAL SIGNS: Per admission sheet. HEENT: Atraumatic, normocephalic. HEART: Regular rate and rhythm. LUNGS: Clear to auscultation bilaterally. ABDOMEN: Benign. EXTREMITIES: He has a little bit of movement of both hips, left worse than right in terms of with traction. He is not grossly unstable on the right, but does definitely feel more so on the left. DIAGNOSTIC DATA: X-rays had showed significant superior wear with an otherwise well-fixed DePuy AML stem and acetabular component. The left hip again shows more shuck and distal movement compared to the right. Normal alignment, stability of bilateral knees and ankles with a well-healed incision from previous total knee arthroplasty. IMPRESSION: Longstanding multiple instability, left hip joint; history of bilateral hip arthroplasties. TREATMENT PLAN: I had previously gone over with him in clinic the possibility of revising his liner, but converting this to a constrained joint given the previous difficulties that he has had. He said the left hip is much more symptomatic than the right and therefore, we will start there. There certainly has a possibility of nerve or blood vessel damage, instability, under extreme circumstances if he would have a big fall or car wreck, the hip was otherwise dislodged, possibility of leg length instability, pain, weakness, medical or other anesthetic complications. All his questions were answered. He wishes to proceed with the revision to a constrained acetabular component with [facility] admission to follow. KAZ FERRO MD DR: HETAL/ching JOB#: [id number] / [id number] RAMSEY Duron MD
[2019-03-14] MEDS ORDERED: SEVOFLURANE > 120 MINUTES. IH ONE (15:19)
[2019-03-14] MEDS ORDERED: NEOSTIGMINE METHYLSULFATE 5 MG/5 ML SYRINGE. ONE (15:39)
[2019-03-14] MEDS ORDERED: GLYCOPYRROLATE 1 MG/5 ML VIAL. ONE (15:39)
[2019-03-14] MEDS ORDERED: DEXTROSE 50% 25 GM / 50ML DISP.SYRIN. IV PRN (16:15)
[2019-03-14] MEDS ORDERED: IV DEXTROSE 5% 250 ML BAG. IV PRN (16:15)
[2019-03-14] MEDS ORDERED: fentaNYL PF VIAL 100 MCG/2 ML VIAL IV PRN (16:15)
[2019-03-14] MEDS ORDERED: diphenhydrAMINE 50 MG/ML VIAL IV PRN (16:15)
[2019-03-14] MEDS ORDERED: ZOLPIDEM 5 MG TABLET. PO PRN (16:15)
[2019-03-14] MEDS ORDERED: CALCIUM CARBONATE 500 MG TAB.CHEW PO PRN (16:15)
[2019-03-14] MEDS ORDERED: oxyCODONE IR 5 MG TABLET PO PRN (16:15)
[2019-03-14] MEDS ORDERED: 0.9 % SODIUM CHLORIDE 10 ML DISP.SYRIN. IV PRN (16:15)
[2019-03-14] MEDS ORDERED: IV NORMAL SALINE 1000ML BAG 1,000 ML IV SCH (16:15)
[2019-03-14] MEDS ORDERED: PROCHLORPERAZINE 5 MG TABLET. PO PRN (16:15)
[2019-03-14] MEDS ORDERED: MORPHINE SULFATE 2 MG/ML VIAL. IV PRN (16:15)
[2019-03-14 17:00] VITALS: BP 119/69
[2019-03-14 17:30] VITALS: BP 123/72
--- NOTE | 2019-03-14 17:48 | RAD ---
AP view of the pelvis and two-view study left hip Clinical indications: Postoperative study. FINDINGS: Total left hip arthroplasty is evident which is well aligned. No lytic process or acute fracture is seen. Total right hip arthroplasty is evident as well on the AP view of the pelvis. This is well aligned. No diastases of the symphysis pubis or either SI joint is seen. IMPRESSION: Bilateral hip prostheses. No acute fracture. Electronically signed by: Reese Levi MD (03/14/2019 5:45 PM) [place] [id number]
--- NOTE | 2019-03-14 17:48 | NUR ---
Rec'd from PACU per bed, alert & forgetful, dressing clean, dry & intact to left hip with Hemovac & IAC intact, bilateral CRISTELA hose & SCD in place, IV's in bilateral hands, states discomfort level 5/10, oriented to surroundings, call light within reach, spouse at bedside
[2019-03-14 18:00] VITALS: BP 119/66
[2019-03-14] MEDS: ONDANSETRON PF 4 MG/2 ML VIAL. IV SCH (18:00)
[2019-03-14] MEDS ORDERED: WARFARIN 7.5 MG TABLET. PO ONE (18:00)
[2019-03-14] MEDS: ONDANSETRON ODT 4 MG TAB.RAPDIS. PO SCH (18:06)
[2019-03-14] MEDS: FERROUS SULFATE 325 MG TABLET. PO SCH (18:06)
[2019-03-14] MEDS: KETOROLAC 30MG VIAL 30 MG, BUPIVACAINE MPF 0.25% 20 ML, EPINEPHrine 0.5 MG in TOTAL VOL... INT ART SCH (18:07)
--- NOTE | 2019-03-14 18:25 | PDOC4 ---
Operative Note Operative Note Date of surgery: 03/14/2019 Preoperative diagnosis: Left hip instability and acetabular polyethylene wear Postoperative diagnosis: Same with well fixed femoral stem and acetabular shell Operative procedure: Revision to constrained acetabular component left hip Surgeon: Xander Assist: Henrik Mondragon Anesthesia: Gen. Estimated blood loss: 200 mL Complications: None Specimens: Intraoperative cultures sent for cell count and Gram stain aerobic anaerobic cultures Operative indications: Please see my preoperative history and physical for detailed operative indications noting that the patient had had multiple previous dislocations and instability complaints with significant acetabular polyethylene wear that made him feel like the hip was sliding around. We had discussed treatment options including revision of his polyethylene but overall due to the history of multiple instability and concerns with recent falls and increasing instability feelings in the hip we talked about revision to a constrained hip arthroplasty and the fact that under normal nontraumatic circumstances the hip would remain in place however and a traumatic situation such as a large fall Ruben accident etc. the hip could be pulled out of place and need to be reduced operatively. There is also possibility of nerve or blood vessel damage nickel or other anesthetic complications infection among others he wishes to proceed with surgical evaluation and treatment. Operative text: Patient was identified procedure verified patient placed in the supine position on the operating table. After adequate amounts of general anesthesia were administered patient was placed in the decubitus position left side up with the Stulberg hip positioner all bony prominences well-padded. The left hip was then prepped and draped in standard sterile fashion and after timeout was performed curvilinear incision was made centered over the greater trochanter posterior approach to the hip was carried out with the iliotibial band and gluteal fascia divided in line with their fibers Charnley retractor was placed. There was a large fluid accumulation mostly posterior but extending into the area where the bursa would typically be situated and contained fluid with the appearance of joint fluid perhaps with some resolving late hematoma. This was sent for intraoperative cell count Gram stain and cultures. Proliferative synovium surrounding the implant was excised to allow the hip to be mobilized and femoral head was then removed there is significant superior wear of the acetabular polyethylene. Acetabulum was exposed and had a elevated posterior rim. Acetabular component was not readily removable due to the incorporated locking ring. The elevated posterior rim was removed with an osteotome for better visualization and portions of the anterior rim were likewise divided and removed with an osteotome along with all polyethylene fragments. The remainder of the locking ring was then removed and the polyethylene then removed without d ifficulty. The central Was removed to allow trial components to determine leg length offset and re-create his and anatomic situation. Trial components were then removed and a size 60 inner diameter constrained [place] component was locked in place with a new locking ring and verified to be seated completely. The compression ring was placed around the femoral neck and a 32 mm +0 femoral head was impacted to engage the Montoya taper and the hip was then reduced into the constrained acetabular component and the locking compression ring was evenly impacted to ensure the constrained function. Hip was taken through full range of motion and leg length and offset were restored for the observations in the trialing procedure. Thorough irrigation carried out normal saline solution Hemovac drain and pain catheter were placed some posterior capsular tissue was re-approximated intra-osseously with Ethibond suture fascia was closed with Ethibond and reinforced with #1 PDS strata fix suture in a running fashion subcutaneous closure with buried Vicryl suture subcuticular 3-0 Monocryl and a tessie drain were placed patient was returned to recovery room in stable condition having tolerated procedure well. Henrik Mondragon nurse practitioner was present for the procedure and assisted in the prepping draping retraction and skin closure KAZ FERRO MD Mar 14, 2019 18:25
[2019-03-14 18:37] LABS: BF CLARITY TURBID; BF COLOR RED; BF RBC COUNT 45500 /cmm (Not Established); BF SOURCE SYNOVIAL; BF WBC COUNT 1000 /cmm (Not Established)
[2019-03-14 18:38] LABS: BF MON % 82 %; BF PMN % 18 %
[2019-03-14] MEDS ORDERED: BACLOFEN 20 MG PO SCH (21:00)
[2019-03-14] MEDS: DULoxetine HCL 30 MG CAPSULE.DR PO SCH (22:39)
[2019-03-14 23:00] VITALS: BP 104/71
[2019-03-15] MEDS: ONDANSETRON PF 4 MG/2 ML VIAL. IV SCH ×3 (05:46→12:00)
[2019-03-15] MEDS: ONDANSETRON ODT 4 MG TAB.RAPDIS. PO SCH ×3 (05:47→12:00)
[2019-03-15] MEDS ORDERED: MAGNESIUM HYDROXIDE 2,400 MG/30 ML ORAL.SUSP. PO PRN (06:00)
[2019-03-15] MEDS: GABAPENTIN 100 MG CAPSULE. PO SCH ×3 (06:00→22:00)
[2019-03-15] MEDS: PANTOPRAZOLE 40 MG TABLET.DR. PO SCH (06:42)
[2019-03-15] MEDS: KETOROLAC 30MG VIAL 30 MG, BUPIVACAINE MPF 0.25% 20 ML, EPINEPHrine 0.5 MG in TOTAL VOL... INT ART SCH (06:43)
[2019-03-15] MEDS: traMADol 50 MG TABLET PO SCH ×4 (06:43→23:56)
[2019-03-15 07:16] VITALS: BP 91/64
--- NOTE | 2019-03-15 07:47 | PDOC ---
ORTHO PROGRESS NOTES Subjective Patient states no pain at this time. Post-op Day: 1 Procedure Revision of left Hip to constrained acetabular component Vitals Vital Signs Date Time Temp Pulse Resp B/P (MAP) Pulse Ox O2 Delivery O2 Flow Rate FiO2 03/15/19 07:16 98.5 77 16 91/64 (73) 92 Room Air 98.5 03/14/19 16:19 8 Labs Laboratory Tests Test 03/14/19 11:20 03/14/19 13:46 Prothrombin Time 13.7 SEC (11.7-14.0) Prothromb Time International Ratio 1.1 (0.8-1.1) Activated Partial Thromboplast Time 25 SEC (24-38) Body Fluid Source Synovial Body Fluid Color Red Body Fluid Clarity Turbid Body Fluid Nucleated Cells 1000 /cmm (Not Established) Body Fluid Mononuclear WBCs (%) 82 % Body Fluid Polymorphonuclear Cells 18 % Body Fluid Total RBCs Counted 82738 /cmm (Not Laboratory Tests Test 03/14/19 11:20 03/14/19 13:46 Prothrombin Time 13.7 SEC (11.7-14.0) Prothromb Time International Ratio 1.1 (0.8-1.1) Activated Partial Thromboplast Time 25 SEC (24-38) Body Fluid Source Synovial Body Fluid Color Red Body Fluid Clarity Turbid Body Fluid Nucleated Cells 1000 /cmm (Not Established) Body Fluid Mononuclear WBCs (%) 82 % Body Fluid Polymorphonuclear Cells 18 % Body Fluid Total RBCs Counted 44759 /cmm (Not Notes awake and alert Assessment and Plan POD # 1 S/P Left hip revision to constrained acetabular component motor and sensory intact distally calf soft and non tender dressing dry and intact PT today ELBA TERRY APRN Mar 15, 2019 07:47
[2019-03-15] MEDS: FERROUS SULFATE 325 MG TABLET. PO SCH ×2 (08:14→16:58)
[2019-03-15] MEDS: MELOXICAM 7.5 MG TABLET PO SCH ×2 (08:14→08:16)
[2019-03-15] MEDS: SENNOSIDES/DOCUSATE 8.6/50MG TABLET. PO SCH (08:14)
[2019-03-15] MEDS: ACETAMINOPHEN 500 MG TABLET PO SCH ×3 (08:14→20:45)
[2019-03-15] MEDS: TAMSULOSIN 0.4 MG CAP.ER.24H. PO SCH (08:14)
[2019-03-15] MEDS: MULTIVITAMIN with MINERAL TABLET. PO SCH (08:15)
[2019-03-15] MEDS: buPROPion XL 150 MG TAB.ER.24H. PO SCH (08:15)
[2019-03-15] MEDS ORDERED: DULoxetine HCL 30 MG CAPSULE.DR PO SCH (09:00)
[2019-03-15 10:22] LABS: PROTHROMBIN TIME PATIENT 15.2 SEC (11.7-14.0)
--- NOTE | 2019-03-15 11:11 | NUR ---
Pharmacy Warfarin Dosing Note S:Pharmacy consulted to assist with anticoagulation therapy started 03/14/19 with target INR: 1.6 - 2.5 O:SHAHRIAR BEACH is a 73 year old M with Revision of left Hip to constrained acetabular component LABS: Last INR: 1.2 Last HGB: 11.4 Last HCT: 35.0 Last PLT: 150 Last dose of 7.5 mg given on 03/14/19 at 1806 Previous Regimen: Vitamin K given: N Drug Interaction Changes: Ongoing Drug Interactions: A:INR of 1.2 is below desired range. Target range for this patient is: 1.6 - 2.5. P: Warfarin dose: 5 mg Today at 1600. Bridge Therapy: None Next INR due tomorrow. Pharmacy anticoagulation service will continue to follow. Steffen Hawkins [facility], 03/15/19 [id number]
[2019-03-15] MEDS ORDERED: ONDANSETRON ODT 4 MG TAB.RAPDIS. PO PRN (12:00)
[2019-03-15] MEDS ORDERED: ONDANSETRON PF 4 MG/2 ML VIAL. IV PRN (12:00)
--- NOTE | 2019-03-15 12:15 | NUR ---
Zofran IV/PO held, no nausea or vomiting
[2019-03-15] MEDS ORDERED: BISACODYL 10 MG SUPP.RECT. PR PRN (16:00)
[2019-03-15] MEDS ORDERED: WARFARIN 5 MG TABLET. PO ONE (16:00)
[2019-03-15 18:47] VITALS: BP 124/71
[2019-03-15] MEDS: DULoxetine HCL 30 MG CAPSULE.DR PO SCH (20:44)
[2019-03-16] MEDS: ACETAMINOPHEN 500 MG TABLET PO SCH ×4 (03:09→21:03)
[2019-03-16] MEDS: GABAPENTIN 100 MG CAPSULE. PO SCH ×3 (06:00→21:10)
[2019-03-16] MEDS: traMADol 50 MG TABLET PO SCH ×3 (06:08→17:07)
[2019-03-16 06:15] VITALS: BP 114/75
[2019-03-16 07:01] VITALS: BP 114/75
[2019-03-16] MEDS: PANTOPRAZOLE 40 MG TABLET.DR. PO SCH (07:18)
[2019-03-16] MEDS: MELOXICAM 7.5 MG TABLET PO SCH ×2 (07:27→07:46)
[2019-03-16] MEDS: buPROPion XL 150 MG TAB.ER.24H. PO SCH (07:46)
[2019-03-16] MEDS: SENNOSIDES/DOCUSATE 8.6/50MG TABLET. PO SCH (07:47)
[2019-03-16] MEDS: FERROUS SULFATE 325 MG TABLET. PO SCH ×2 (07:47→17:07)
[2019-03-16] MEDS: TAMSULOSIN 0.4 MG CAP.ER.24H. PO SCH (07:47)
[2019-03-16] MEDS: MULTIVITAMIN with MINERAL TABLET. PO SCH (07:47)
[2019-03-16 09:10] LABS: HEMATOCRIT 33.4 % (39.0-53.0); HEMOGLOBIN 11.3 g/dL (13.0-17.5)
[2019-03-16 09:28] LABS: PROTHROMBIN TIME PATIENT 14.8 SEC (11.7-14.0)
--- NOTE | 2019-03-16 15:12 | NUR ---
Pharmacy Warfarin Dosing Note S:Pharmacy consulted to assist with anticoagulation therapy started 03/14/19 with target INR: 1.6 - 2.5 O:SHAHRIAR BEACH is a 73 year old M with Revision of left Hip to constrained acetabular component LABS: Last INR: 1.2 Last HGB: 11.3 Last HCT: 33.4 Last PLT: 150 Last dose of 5 mg given on 03/15/19 at 1702 Previous Regimen: Vitamin K given: N Drug Interaction Changes: Same Interacting Drug Ongoing Drug Interactions: DULOXETINE, MELOXICAM A:INR of 1.2 is below desired range. Target range for this patient is: 1.6 - 2.5 P: Warfarin dose: 6 mg Today at 1600 Bridge Therapy: None Next INR due tomorrow Pharmacy anticoagulation service will continue to follow. Gayle Escalante RPH, 03/16/19 [id number]
[2019-03-16] MEDS ORDERED: WARFARIN 3 MG TABLET. PO ONE (16:00)
[2019-03-16 18:16] VITALS: BP 116/70
[2019-03-16] MEDS: DULoxetine HCL 30 MG CAPSULE.DR PO SCH (21:03)
[2019-03-17] MEDS: traMADol 50 MG TABLET PO SCH ×4 (00:55→12:09)
[2019-03-17] MEDS: ACETAMINOPHEN 500 MG TABLET PO SCH ×3 (03:00→13:06)
[2019-03-17] MEDS: GABAPENTIN 100 MG CAPSULE. PO SCH ×2 (05:30→11:14)
[2019-03-17 06:30] VITALS: BP 113/78
[2019-03-17] MEDS: PANTOPRAZOLE 40 MG TABLET.DR. PO SCH ×2 (07:20→07:55)
[2019-03-17] MEDS: FERROUS SULFATE 325 MG TABLET. PO SCH (07:56)
[2019-03-17] MEDS: MULTIVITAMIN with MINERAL TABLET. PO SCH (07:56)
[2019-03-17] MEDS: SENNOSIDES/DOCUSATE 8.6/50MG TABLET. PO SCH (07:56)
[2019-03-17] MEDS: TAMSULOSIN 0.4 MG CAP.ER.24H. PO SCH (07:56)
[2019-03-17] MEDS: buPROPion XL 150 MG TAB.ER.24H. PO SCH (07:56)
[2019-03-17] MEDS: MELOXICAM 7.5 MG TABLET PO SCH (07:56)
[2019-03-17 08:19] LABS: HEMATOCRIT 32.3 % (39.0-53.0)
[2019-03-17 08:31] LABS: PROTHROMBIN TIME PATIENT 14.8 SEC (11.7-14.0)
--- NOTE | 2019-03-17 09:11 | NUR ---
Pharmacy Warfarin Dosing Note S: Pharmacy consulted to assist with anticoagulation therapy started 03/14/19 O: SHAHRIAR BEACH is a 73 year old M with Revision of left Hip to constrained acetabular component LABS: Last INR: 1.2 Last HGB: 11 Last HCT: 32.3 Last PLT: 150 Last dose of 6 mg given on 03/16/19 at 1708 Vitamin K given: N Ongoing Drug Interactions: DULOXETINE, MELOXICAM A:INR of 1.2 is below desired range. Target range for this patient is: 1.6 - 2.5 P: Warfarin dose: 7.5 mg prior to discharge then and daily Bridge Therapy: None Next INR due Tuesday 03/20 to be drawn by home health and called to [facility] pharmacy at [phone] Pharmacy anticoagulation service will continue to follow. Gayle Escalante RPH, 03/17/19 [id number]
[2019-03-17] MEDS ORDERED: WARFARIN 7.5 MG TABLET. PO ONE (13:00)
[2019-03-17] MEDS ORDERED: WARF7.5T45 PO (13:16)
[2019-03-17] MEDS ORDERED: TRAM50TA PO (13:16)
--- NOTE | 2019-03-17 13:19 | SNU/HH DC ---
DISCHARGE WITH HOME HEALTH DISCHARGE INFORMATION: Condition on Discharge: Stable CODE STATUS: Code Status: Full HOME HEALTH: Face to Face: I certify this patient is under my care and that I, or a nurse practitioner or physician's operating room assistant working with me, had a face to face encounter that meets the physician face to face encounter requirements with this patient on [03/17/2019]. 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 It is to remain in place for 2 weeks CHECKS AFTER DISCHARGE: Checks after discharge: Check blood press - daily FOLLOW-UP: Follow Up With: Dr Terrell in 10-14 days [phone] Warfarin Follow UP: [facility] [phone] TREATMENT/EQUIPMENT ORDERS: Adaptive Equipment Issued: Brandon CERTIFICATION STATEMENT: Certification Statement: Certification Statement: Based on the above finding, I certify that this patient is confined to the home and needs intermittent care home care, physical therapy and/or speech therapy, or continues to need occupational therapy.~ This patient is under my care, and I have initiated the establishment of the plan of care.~ This patient will be followed by myself or a community physician who will periodically review the plan of care. Home Meds Active Scripts Meloxicam (MELOXICAM) 7.5 Mg Tablet, 15 MG PO DAILY for pain and swelling, #30 TAB Prov:ADRIANNE BYRD MD 09/16/18 Reported Medications Tamsulosin Hcl (TAMSULOSIN HCL) 0.4 Mg Cap.er.24h, 0.4 MG PO DAILY for daily, TAB 08/22/18 Bupropion Hcl (BUPROPION XL) 300 Mg Tab.er.24h, 150 MG PO DAILY07 for depression , TAB.SR 08/22/18 Baclofen (BACLOFEN) 20 Mg Tablet, 20 MG PO QID for MUSCLE RELAXER, #30 TAB 0 Refills 08/22/18 Omeprazole (PRILOSEC) 20 Mg Capsule., 1 CAP PO DAILY, #90 CAP 1 Refill 06/27/15 Duloxetine Hcl (CYMBALTA) 60 Mg Capsule., 1 CAP PO DAILY, #90 CAP 3 Refills 06/27/15 KAZ TERRELL MD Mar 17, 2019 13:19
--- NOTE | 2019-03-17 13:32 | PDOC ---
PROGRESS NOTES Subjective Subjective Problems overnight:pain controlled, stable Objective Vital Signs Vital Signs Date Time Temp Pulse Resp B/P (MAP) Pulse Ox O2 Delivery O2 Flow Rate FiO2 03/17/19 13:06 Room Air 03/17/19 07:20 16 03/17/19 06:30 98.0 87 113/78 (90) 98 98.0 03/16/19 21:05 2.0 Physical Exam tessie drainage inferiorly neuro intact Labs Laboratory Tests Test 03/16/19 08:50 03/17/19 07:25 Hemoglobin 11.3 g/dL (13.0-17.5) 11.0 g/dL (13.0-17.5) Hematocrit 33.4 % (39.0-53.0) 32.3 % (39.0-53.0) Mean Corpuscular Hemoglobin Concent 34 g/dL (31-37) 34 g/dL (31-37) Prothrombin Time 14.8 SEC (11.7-14.0) 14.8 SEC (11.7-14.0) Prothromb Time International Ratio 1.2 (0.8-1.1) 1.2 (0.8-1.1) Laboratory Tests Test 03/17/19 07:25 Hemoglobin 11.0 g/dL (13.0-17.5) Hematocrit 32.3 % (39.0-53.0) Mean Corpuscular Hemoglobin Concent 34 g/dL (31-37) Prothrombin Time 14.8 SEC (11.7-14.0) Prothromb Time International Ratio 1.2 (0.8-1.1) Assessment Assessment POD# 2 total hip revision Plan Plan of USP with coumadin f/u 2 weeks KAZ FERRO MD Mar 17, 2019 13:31
--- NOTE | 2019-03-17 15:22 | NUR ---
Patient left the building with transportation in a wheelchair with his around 1504. Discharge education was completed by this nurse, therapy, and his doctor. CHARLY dressing with small amount of dry bloody drainage present which the doctor is aware of. CHARLY dressing education completed with the patient and his prior to discharge. Coumadin to take at home was given to the patient by pharmacy prior to discharge with education completed by this nurse and pharmacy on coumadin dosage, follow up, and PT/INR draws. No IV access present. Patient has own walker at home. No concerns noted upon discharge.
--- NOTE | 2019-03-17 18:19 | NUR ---
Around 1730 this nurse was called from the ER because the patient came in due to anxiety (patient with history of PTSD) from drainage on CHARLY dressing. Drainage was unchanged from dismissal and not seeping thru the current dressing but patient stated the battery pack from the CHARLY was bothering him and kept coming undone. He was nervous about the amount of drainage on the dressing and just wanted to be seen in the ER to make sure it was okay. Upon verification from Dr Terrell this nurse changed out the CHARLY dressing and placed an Aquacel AG dressing due to patients anxiety from the CHARLY tubing and current drainage on dressing. Education was then completed AGAIN with the patient and his in regards to his dressing. They were instructed that unless the dressing becomes saturated with blood or blood starts leaking out of dressing and is unable to be sealed back up, that they DO NOT take off dressing and they DO NOT come back thru the ER. The patient was directed that if these issues arise he is to call Dr Terrell's office for instructions. Patient and his stated CLEAR understanding of this education. ER staff was informed of Dr Terrell's orders and the fact the patients dressing was just changed by this nurse. Dr Terrell also stated for the patient to continue taking his Coumadin as ordered and to go back home with the recent discharge orders and HH follow up.
--- NOTE | 2019-03-21 00:06 | DS ---
DATE OF DISCHARGE: 03/17/2019 CHIEF COMPLAINT: Left hip instability and left hip pain. OPERATIVE PROCEDURE: Includes revision to constrained left hip arthroplasty for acetabular wear and multiple documented occurrences of hip instability. DISPOSITION: Home with home health. DISPOSITION MEDICATIONS: Tramadol 50 mg p.o. q. 4 hours p.r.n. pain, Coumadin as directed by Anticoagulation Clinic, resume preoperative medications. FOLLOW UP: With Dr. Terrell 2 weeks. DISCHARGE INSTRUCTIONS: Hip precautions are not necessary due to the constrained liner. He is weightbearing as tolerated. BRIEF DESCRIPTION OF HOSPITAL COURSE: The patient underwent uncomplicated revision to a constrained acetabular liner. He had had some bloody drainage on the CHARLY dressings, which required changing during the hospital stay and on his date of discharge actually had dressing approximately on its lower half noted some bloody drainage. He had actually come back to the Emergency Department same day with concern for it and the dressing was changed. He was told to keep this on and call if there were any problems, but otherwise leave it alone and maintain the suction intact. He otherwise did well with his getting up and around with physical therapy, and was discharged in stable condition to home with home health followup on him. KAZ TERRELL MD DR: HETAL/ching JOB#: [id number] / [id number] RAMSEY Duron MD
== END 2019-03-17 15:05 | disposition home health service (06) | DRG 468 ==
LOC: OPSVCIP 10:44 → 4 SOUTHEST 17:18
PROVIDERS: ADMIT Orthopaedic Surgery; ATTEND Orthopaedic Surgery
PROC: 0SRB02Z Replacement of Left Hip Joint with Metal on Polyethylene Synthetic Substitute, Open Approach (ICD-10-PCS; principal; 2019-03-17)
PROC: 0SPB0JZ Removal of Synthetic Substitute from Left Hip Joint, Open Approach (ICD-10-PCS; 2019-03-17)
DX: T84.021A Dislocation of internal left hip prosthesis, initial encounter (principal); M25.352 Other instability, left hip; F43.10 Post-traumatic stress disorder, unspecified; M79.7 Fibromyalgia; Z96.643 Presence of artificial hip joint, bilateral; Z96.652 Presence of left artificial knee joint; F32.9 Major depressive disorder, single episode, unspecified; G62.9 Polyneuropathy, unspecified; R29.6 Repeated falls; Z79.899 Other long term (current) drug therapy
CPT/HCPCS: 36415; 73502; 85014; 85018; 85610; 85730; 86850; 86900; 86901; 87071; 87075; 89050; A7015; C1713; J0171; J0696; J1100; J1885; J2001; J2270; J2405; J2704; J2710; J2795; J3010; J3490; J7030; J7120; Q0162; 97116; 97150; 97530; 97535; C1776; G0378

== ENCOUNTER 2019-03-17 17:05 | Emergency (ER) | payer MEDICARE ==
[~2019-03-17] VITALS: Ht 175.3 cm; Wt 90.7 kg
[~2019-03-17 17:05] MED LIST changes: -CELECOXIB 100 MG CAPSULE. PO PRN; -HYDROcodone/APAP 7.5/325MG 1 TAB TABLET PO PRN; -HYDROmorphone 2 MG/ML VIAL IV PRN; -IV RINGERS,LACTATED 1000ML 1,000 ML IV SCH; -LIDOCAINE 1% PF 2 ML VIAL. ID PRN; -MORPHINE SULFATE 2 MG/ML VIAL. IV PRN; -MORPHINE SULFATE 5 MG, KETOROLAC 30MG VIAL 30 MG, ROPIVacaine 0.5% PF 60 ML, EPINEPHrin... INT ART ONE; -ONDANSETRON PF 4 MG/2 ML VIAL. IV PRN; -PROCHLORPERAZINE 10 MG/2 ML VIAL. IV PRN; +TRAM50TA PO; -TRANEXAMIC ACID 1,000 MG in IV NS 50ML -- 1ST BAG INJ ONE; -TRANEXAMIC ACID 1,000 MG in IV NS 50ML -- 2ND BAG INJ ONE; +WARF7.5T45 PO; -fentaNYL PF VIAL 100 MCG/2 ML VIAL IV PRN
[2019-03-17 17:12] VITALS: BP 149/70
--- NOTE | 2019-03-17 17:24 | PHYS DOC ---
Past Medical History Past Medical History: Fibromyalgia, Other Additional Past Medical Histor: PTSD, DEGENERATIVE DISC DISEASE, NEUROPATHY, C- DIF Past Surgical History: Hip Replacement, Knee Replacement, Other Additional Past Surgical Histo: LUBAR FUSION, CERVICAL SURGERY WITH HARDWARE Alcohol Use: Occasionally Drug Use: None Adult General Chief Complaint Chief Complaint: POST-OP PROBLEM HPI HPI Patient is a 73 year old male who presents to the ER with complaints of increased blood on his dressing from his left hip replacement. Pt states he had a hip replacement by Dr. Terrell here on Wednesday and was sent home this afternoon from the hospital. Pt states he had a hard time getting out of a chair and noticed increased bleeding under his bandage. He denies any pain at this time or injury. Review of Systems Review of Systems Constitutional: Denies fever or chills [] Respiratory: Denies cough or shortness of breath [] Musculoskeletal: Denies back pain or joint pain [] Integument: see HPI Neurologic: Denies headache, focal weakness or sensory changes [] Complete systems were reviewed and found to be within normal limits, except as documented in this note. Allergies Allergies Allergies Coded Allergies Type Severity Reaction Last Updated Verified No Known Drug Allergies 03/14/19 No Physical Exam Physical Exam Constitutional: Well developed, well nourished, no acute distress, non-toxic appearance. [] HENT: Normocephalic, atraumatic, bilateral external ears normal, nose normal. [] Eyes: conjunctiva normal, no discharge. [] Neck: Normal range of motion, no stridor. [] Cardiovascular:Heart rate regular rhythm Lungs & Thorax: Respirations even and unlabored, no retractions, no respiratory distress Skin: Warm, dry, no erythema, no rash; left hip surgical dressing has dried blood and some fresh blood present, no active bleeding, dressing is intact. [] Extremities: No tenderness, no cyanosis, no clubbing, ROM intact, no edema. [] Neurologic: Alert and oriented X 3, normal motor function, normal sensory funct ion, no focal deficits noted. [] Psychologic: Affect normal, judgement normal, mood normal. [] Current Patient Data Vital Signs Vital Signs Date Time Temp Pulse Resp B/P (MAP) Pulse Ox O2 Delivery O2 Flow Rate FiO2 03/17/19 17:12 98.0 100 20 149/70 (96) 95 Room Air 98.0 EKG EKG [] Radiology/Procedures Radiology/Procedures [] Course & Med Decision Making Course & Med Decision Making Pertinent Labs and Imaging studies reviewed. (See chart for details) Dx: wound recheck 1721- Amy wound center RN notified. 1749- Amy RN changed patient's dressing and notified Dr. Terrell. Per Dr. Terrell pt is to continue taking his medications as instructed at discharge and follow up with him in office as scheduled. Dragon Disclaimer Dragon Disclaimer This electronic medical record was generated, in whole or in part, using a voice recognition dictation system. Departure Departure Impression: Primary Impression: Encounter for post surgical wound check Disposition: HOME, SELF-CARE Condition: STABLE Referrals: RAMSEY GLASGOW MD (PCP) Patient Instructions: Wound Check Additional Instructions: Keep the dressing in placed as instructed by Amy MICHELE from [facility]. Take your medications as prescribed, follow up with Dr. Terrell as scheduled. CRISTELA CONNOR APRN Mar 17, 2019 17:24
== END 2019-03-17 18:07 | disposition home or self-care (01) ==
LOC: ER 17:05
DX: M96.830 Postprocedural hemorrhage of a musculoskeletal structure following a musculoskeletal system procedure (principal); E11.40 Type 2 diabetes mellitus with diabetic neuropathy, unspecified; Z96.659 Presence of unspecified artificial knee joint; Z96.642 Presence of left artificial hip joint; Z98.1 Arthrodesis status
CPT/HCPCS: 99284

== ENCOUNTER → 2020-02-23 | Outpatient (CLI) | payer MEDICARE, OTHER ==
[~2020-02-23] MED LIST changes: -BUPR300T4 PO; +BUPR300T92 PO; +MECL-75 PO; -MECL25TA3 PO
--- NOTE | 2020-02-23 09:27 | KCIC ---
Examination: Frontal view the pelvis and 2 views of the bilateral hips HISTORY: History of bilateral hip pain COMPARISON: 03/14/2019 Findings: Total bilateral hip arthoplasty changes in normal alignment. There is no acute fracture or dislocation identified. IMPRESSION: 1. Unchanged alignment bilateral hip arthroplasty. Electronically signed by: Nigel Cisneros MD (02/23/2020 9:24 AM) [id number]
== END | disposition home or self-care (01) ==
LOC: KCIC 08:36
PROVIDERS: ATTEND Physician Assistant Medical
DX: M25.551 Pain in right hip (principal); M25.552 Pain in left hip; Z96.643 Presence of artificial hip joint, bilateral
CPT/HCPCS: 73521

== ENCOUNTER → 2020-06-26 | Outpatient (CLI) | payer MEDICARE, OTHER ==
[~2020-06-26] MED LIST changes: +GADOTERATE 7.5 MMOL/15ML VIAL. IVP ONE
--- NOTE | 2020-06-26 12:26 | KCIC ---
MRI of the cervical spine without and with contrast 06/26/2020 CLINICAL HISTORY: Neck pain with bilateral arm pain. History of previous fusion. TECHNIQUE: Unenhanced T1-weighted, T2-weighted and inversion recovery sagittal and gradient echo, T2- weighted and T1-weighted axial images of the cervical spine were obtained. After The intravenous administration of 18 cc of Clariscan, enhanced T1-weighted sagittal and axial images of the cervical spine were obtained. FINDINGS: Comparison is made to patient's CT scan of the cervical spine dated 11/06/2018. Mild lateral curvature of the cervical spine is seen convex to the left. There is straightening of th e normal cervical lordosis. The patient is post anterior discectomy and fusion using an anterior plat e, bone screws and bone graft material at C4-5 and C5-6. Degenerative signal changes and loss of heig ht are seen involving the remaining discs of the cervical spine. Mild anterolisthesis of C7 in relati on to T1 is again noted. No area of abnormal signal intensity is seen involving the cervical spinal c ord. No area of abnormal contrast enhancement is seen. At the C2-3 disc space there is a mild generalized disc bulge. Degenerative changes are seen involvin g the uncovertebral and facet joints, left greater than right. These findings when combined efface th e anterior and posterior CSF resulting in mild central spinal canal stenosis without evidence of cord impingement. Severe left neural foraminal stenosis is seen. The right neural foramen is patent. At the C3-4 disc space there is a moderate generalized disc bulge. Degenerative changes are seen invo lving the uncovertebral and facet joints, right greater than left. These findings efface the anterior CSF resulting in mild central spinal canal stenosis without evidence of cord impingement. Mild to mo derate right greater than left neural foraminal stenosis is seen. At the C4-5 level degenerative changes are seen involving the uncovertebral and facet joints, right g reater than left. These findings do not result in significant central spinal canal stenosis. Mild rig ht neural foraminal stenosis is seen. The left neural foramen is patent. At the C5-6 level degenerative changes are seen involving the uncovertebral and facet joints, left gr eater than right. These findings do not result in significant central spinal canal stenosis. Mild lef t neural foraminal stenosis is seen. The right neural foramen is patent. At the C6-7 disc space there is a mild generalized disc bulge. Degenerative changes are seen involvin g the uncovertebral and facet joints bilaterally. These findings efface the anterior CSF without resu lting in significant central spinal canal stenosis. No neural foraminal stenosis is seen. At the C7-T1 disc space there is a mild generalized disc bulge. Degenerative changes are seen involvi ng the facet joints, right greater than left. These findings do not result in significant central spi nal canal stenosis. Mild to moderate right greater than left neural foraminal stenosis is seen. IMPRESSION: 1. Status post anterior discectomy and fusion at C4-5 and C5-6. 2. Degenerative changes are seen throughout the cervical spine. These findings result in mild centra l spinal canal stenosis at C2-3 and mild central spinal canal stenosis at C3-4 without evidence of co rd impingement. Multilevel neural foraminal stenosis of varying severity is seen as discussed above. Electronically signed by: Pablito Thompson MD (06/26/2020 12:23 PM) [id number]
== END ==
LOC: KCIC MRI 10:02
PROVIDERS: ATTEND Physician Assistant Medical
DX: M47.812 Spondylosis without myelopathy or radiculopathy, cervical region (principal); M48.02 Spinal stenosis, cervical region; Z98.1 Arthrodesis status
CPT/HCPCS: 72156; 82565; A9575

== ENCOUNTER → 2020-08-02 | Outpatient (CLI) | payer MEDICARE, OTHER ==
[~2020-08-02] MED LIST changes: -GADOTERATE 7.5 MMOL/15ML VIAL. IVP ONE; +IOHEXOL 180 MG/ML 10 ML VIAL. ONE; +OMEG1CAP27 PO; +OXYC1TAB22 PO; +SILD25TA PO; +[UNRECOGNIZED DRUG - OTHER]; +methylPREDNISolone ACETATE 40 MG/ML VIAL. ONE; +methylPREDNISolone ACETATE 80 MG/ML VIAL. ONE
--- NOTE | 2020-08-02 11:10 | PDOC ---
Progress Note - Pain Clinic Date of Service: DOS: DATE: 08/02/20 TIME: 11:05 Diagnosis: Dx: Cervical radiculopathy with cervical spinal stenosis and cervical postlaminectomy syndrome Lumbar radiculopathy with lumbar spinal stenosis and spondylosis Myofascial pain History or Present Illness: HPI: 74-year-old male returns for follow-up last seen 2018 with trigger point injection as well as cervical epidurals prior to the. With very good results patient reports he has been doing fairly well over the past 2 years or so with s ome pain increasing now over the past several months in the base the neck and shoulders worse on the right than the left and present bilaterally with radiating pain into the upper extremities. Patient reports no new motor or sensory deficits no recent injury or accident that he is aware of but gradually increasing in pain at the base the neck mostly in the right upper extremity but present bilaterally posterior deltoid posterior triceps anterior biceps and forearms with some decreased fine motor movements ability in the hands bilaterally. Patient reports no complete motor loss but significant fatigability upper extremities with reaching weightbearing weight lifting repetitive motions and reaching over his head with his hands. Patient reports it is waking him from sleep at night specially the pain in the base the neck and shoulders. Patient have an MRI scan showing previous surgery at the C4-5 and C5-6 level with fusion also degenerative changes throughout the cervical spine with mild central spinal canal stenosis at C2-3 and mild central spinal canal stenosis at C3-4 without evidence of cord impingement multilevel neuroforaminal stenosis C4-5 C5-6 C6-7 and C7-T1. Physical Exam: VS: Blood pressure is 114/79 pulse 81 respirations 16 temperature 98.1 F height is 5 feet 10 inches weight is 201 pounds PE: PHYSICAL EXAMINATION: GENERAL: The patient is awake, alert, oriented, appropriate, very pleasant demeanor HEENT: Shows normocephalic, atraumatic. Extraocular movements are intact and symmetrical. Oral cavity: Mucous membranes moist and pink. Dentition is intact. NECK: Shows anterior throat supple without palpable lymphadenopathy noted. Swallow reflex symmetrical. CHEST: Shows normal on inspection. Breath sounds are clear bilaterally, no rales rhonchi or wheezes auscultated. HEART: Shows S1, S2 clear. No murmurs auscultated. ABDOMEN: Soft, nontender, nondistended, obese. No palpable organomegaly is noted. No rebound or guarding demonstrated. BACK: Shows spine grossly in the midline. Normal-appearing cervical lordotic curvature. Cervical paraspinous muscles show symmetrical on inspection on palpation some moderate tenderness diffusely bilaterally diffusely without significant radiation. Patient shows good rotation motion cervical spine both laterally as well as extension flexion without significant increase in pain. There is mildly increased thoracic kyphosis, some flattening of the lumbar lordotic curvature. Lumbar paraspinous muscles show symmetrical on inspection, on palpation shows some moderate tenderness diffusely throughout the upper, middle and lower distribution of the paraspinous muscles bilaterally and also into the lower thoracic paraspinous musculature, firm and tender, but without specific trigger points, without radiation of pain. The patient has good rotational motion of the lumbar spine, both laterally as well as extension and flexion without significant difficulty. No tenderness over the spinous processes, or sacroiliac regions. EXTREMITIES: Upper extremities show deep tendon reflexes 2+ in the biceps and triceps tendons. Motor exam is 4 on a scale of 5 with right steam table attendant strength, biceps and triceps flexion and 5/5 on the left. Peripheral pulses are 2+ radial. No peripheral edema is noted bilaterally. Upper extremities are warm and dry to touch, equal in color and appearance. SKIN: Shows warm and dry, good turgor. No edema. No sores, rashes or bruising throughout. Procedure: Procedure: Options were discussed with the patient. Patient's old chart reviews his current medication regimen updated current review of systems updated today as well. We will proceed with a cervical epidural steroid injection today with fluoroscopic guidance. Risks were discussed including but not limited to: Bleeding, infection, possibility of epidural hematoma and subsequent neurological compromise, dural puncture, headaches, spinal cord and/or nerve damage, side effects of steroid medication, and poor results regarding pain control. Patient understands and wished to proceed. Patient will return to clinic in approximate 2 weeks for follow-up, was counseled as to return appointment activity level and side effects to be aware of. Medication Injected: Med Injected: Procedure cervical epidural steroid injection at the C6-7 level, using local anesthetic under sterile prep and drape using C-arm fluoroscopic guidance under local anesthesia medications injected ; 120 mg Depo-Medrol + 5 mL normal saline and 2 mL contrast; condition at discharge is stable patient tolerated procedure well. and had no complications Condition at Discharge: Condition at Discharge: Condition at discharge is stable, patient tolerated the procedure well and had no complications. YUE HASSAN MD Aug 02, 2020 11:10
--- NOTE | 2020-08-02 11:10 | PDOC4 ---
PROCEDURE Procedure Patient was consented for cervical epidural steroid injection. Risks were d iscussed including but not limited to: Bleeding, infection, possibility of epidural hematoma and subsequent neurological compromise, dural puncture, headaches, spinal cord and/or nerve damage, side effects of steroid medication, and poor results regarding pain control. Patient understands and wished to proceed. Procedure cervical epidural steroid injection at the C6-7 level, using local anesthetic under sterile prep and drape using C-arm fluoroscopic guidance under local anesthesia medications injected ; 120 mg Depo-Medrol + 5 mL normal saline and 2 mL contrast; condition at discharge is stable patient tolerated procedure well. and had no complications YUE HASSAN MD Aug 02, 2020 11:10
== END | disposition home or self-care (01) ==
LOC: PNCL 10:00
PROVIDERS: ATTEND Anesthesiology
DX: M48.02 Spinal stenosis, cervical region (principal); M47.26 Other spondylosis with radiculopathy, lumbar region; M48.061 Spinal stenosis, lumbar region without neurogenic claudication; M96.1 Postlaminectomy syndrome, not elsewhere classified; M79.10 Myalgia, unspecified site; E78.00 Pure hypercholesterolemia, unspecified; G47.30 Sleep apnea, unspecified; M19.90 Unspecified osteoarthritis, unspecified site; F41.9 Anxiety disorder, unspecified; F32.9 Major depressive disorder, single episode, unspecified; N40.0 Benign prostatic hyperplasia without lower urinary tract symptoms; K21.9 Gastro-esophageal reflux disease without esophagitis; Z79.899 Other long term (current) drug therapy; Z98.890 Other specified postprocedural states; Z72.89 Other problems related to lifestyle
CPT/HCPCS: 62321; J1030; J1040; Q9965

== ENCOUNTER → 2020-08-16 | Outpatient (CLI) | payer MEDICARE, OTHER ==
--- NOTE | 2020-08-16 11:35 | PDOC4 ---
PROCEDURE Procedure Patient was consented for cervical epidural steroid injection. Risks were d iscussed including but not limited to: Bleeding, infection, possibility of epidural hematoma and subsequent neurological compromise, dural puncture, headaches, spinal cord and/or nerve damage, side effects of steroid medication, and poor results regarding pain control. Patient understands and wished to proceed. Procedure cervical epidural steroid injection at the C6-7 level, using local anesthetic under sterile prep and drape using C-arm fluoroscopic guidance under local anesthesia medications injected ; 120 mg Depo-Medrol + 5 mL normal saline and 2 mL contrast; condition at discharge is stable patient tolerated procedure well. and had no complications YUE HASSAN MD Aug 16, 2020 11:35
--- NOTE | 2020-08-16 11:35 | PDOC ---
Progress Note - Pain Clinic Date of Service: DOS: DATE: 08/16/20 TIME: 11:31 Diagnosis: Dx: Cervical radiculopathy with cervical spinal stenosis cervical postlaminectomy syndrome Lumbar radiculopathy with lumbar spinal stenosis lumbar spondylosis Myofascial pain History or Present Illness: HPI: 74-year-old male returns follow-up status post cervical epidural steroid traction x1. Patient reports about 70% improvement after the first injection still some pain in the base the neck and upper extremities right greater than left radiating to right arm and shoulder into the biceps and forearm on the right side greater than left. Patient reports still pain the base the neck as well with rotation motion especially extension but much better has been increasing distance walking doing household activities work activities travel with greater ease and comfort sleeping better at night still wakes him from sleep occasionally but not once more than every 7 hours or so. Patient reports pain is a 5 on a scale 10 is worse over the past week for an average 3 its least and is a 4 today. Patient scribes pain is dull and aching in the neck shooting and sometimes stabbing in the upper extremities especially on the right arm worse with weight bearing repetitive motions reaching over his head with his right arm as well. Physical Exam: VS: Blood pressure is 134/91 pulse 73 respirations 18 temperature 98.1 F height is 5 foot 10 inches weight is 202 pounds PE: PHYSICAL EXAMINATION: GENERAL: The patient is awake, alert, oriented, appropriate, very pleasant demeanor HEENT: Shows normocephalic, atraumatic. Extraocular movements are intact and symmetrical. Oral cavity: Mucous membranes moist and pink. Dentition is intact. NECK: Shows anterior throat supple without palpable lymphadenopathy noted. Swallow reflex symmetrical. CHEST: Shows normal on inspection. Breath sounds are clear bilaterally, no rales or rhonchi. HEART: Shows S1, S2 clear. No murmurs auscultated. ABDOMEN: Soft, nontender, nondistended, obese. No palpable organomegaly is noted. BACK: Shows spine grossly in the midline. Normal-appearing cervical lordotic curvature. Cervical paraspinous muscles show symmetrical on inspection on palpation some moderate tenderness diffusely in the middle and lower distribution paraspinous muscles bilaterally but without radiation without asymmetry or trigger points. Patient is good rotation motion cervical spine both laterally with some moderate tenderness with extension but not with forward flexion right left lateral rotation past 45 degrees without significant increase in pain as well. There is slightly increased thoracic kyphosis, some flattening of the lumbar lordotic curvature. Lumbar paraspinous muscles show symmetrical on inspection, on palpation shows some moderate tenderness diffusely throughout the upper, middle and lower distribution of the paraspinous muscles bilaterally, but without specific trigger points, without radiation of pain. The patient has good rotational motion of the lumbar spine, both laterally as well as extension and flexion without significant difficulty. No tenderness over the spinous processes, sacrum or sacroiliac regions. EXTREMITIES: Upper extremities show deep tendon reflexes 2+ in the bicep and triceps tendons are equal motor exam is strong with 5 out of 5 professional tutor strength biceps and triceps flexion peripheral pulses are 2+ radial no peripheral edema is noted shoulder shrug is strong and intact without loss of strength on resistance bilaterally. Lower extremities show deep tendon reflexes 2+ in the patellar and tendo calcaneus tendons. Motor exam is 5 on a scale of 5 with right dorsiflexion, extension, quadriceps and hamstring flexion and 5/5 on the left. Peripheral pulses are 1+ posterior tibial. No peripheral edema is noted bilaterally. SKIN: Shows warm and dry, good turgor. No edema. No sores, rashes or bruising throughout. Procedure: Procedure: Options were discussed with the patient. Patient will chart reviews his current medication regimen updated current review of systems updated today as well. We will proceed with a second cervical epidural steroid traction today in the series with fluoroscopic guidance. Risks were discussed including but not limited to: Bleeding, infection, possibility of epidural hematoma and subsequent neurological compromise, dural puncture, headaches, spinal cord and/or nerve damage, side effects of steroid medication, and poor results regarding pain control. Patient understands and wished to proceed. Patient will return to clinic in approximate 2 weeks for follow-up with counselors return appointment activity level and side effects to be aware of. Medication Injected: Med Injected: Procedure cervical epidural steroid injection at the C6-7 level, using local anesthetic under sterile prep and drape using C-arm fluoroscopic guidance under local anesthesia medications injected ; 120 mg Depo-Medrol + 5 mL normal saline and 2 mL contrast; condition at discharge is stable patient tolerated procedure well. and had no complications Condition at Discharge: Condition at Discharge: Condition at discharge stable, patient allergies well had no complications. YUE HASSAN MD Aug 16, 2020 11:35
== END | disposition home or self-care (01) ==
LOC: PNCL 10:25
PROVIDERS: ATTEND Anesthesiology
DX: M48.02 Spinal stenosis, cervical region (principal); M47.26 Other spondylosis with radiculopathy, lumbar region; M48.061 Spinal stenosis, lumbar region without neurogenic claudication; M96.1 Postlaminectomy syndrome, not elsewhere classified; E78.00 Pure hypercholesterolemia, unspecified; M19.90 Unspecified osteoarthritis, unspecified site; F41.9 Anxiety disorder, unspecified; F32.9 Major depressive disorder, single episode, unspecified; K21.9 Gastro-esophageal reflux disease without esophagitis; Z72.89 Other problems related to lifestyle
CPT/HCPCS: 62321; J1030; J1040; Q9965

== ENCOUNTER → 2020-09-09 | Outpatient (CLI) | payer MEDICARE, OTHER ==
--- NOTE | 2020-09-09 12:04 | PDOC ---
Progress Note - Pain Clinic Date of Service: DOS: DATE: 09/09/20 TIME: 12:00 Diagnosis: Dx: Cervical radiculopathy with cervical spinal stenosis cervical postlaminectomy syndrome Lumbar to colopathy with lumbar spinal stenosis and lumbar spondylosis Myofascial pain History or Present Illness: HPI: 74-year-old male returns follow-up status post cervical epidural to injection x2. Patient reports about 80% improvement in the neck and the right shoulder and upper extremity pain. Patient reports doing much better increase activity with daily activities walking work activities household activities mobility is much improved and traveling with greater ease as well. Patient reports he is sleeping better at night does not awaken him sleep generally he does have some low back pain that is been bothering him as well but more on the right than the left but this is secondary to his neck and shoulder. Patient reports still some radiation of the right upper extremity mostly the posterior deltoid and triceps and biceps. Patient reports pain to 5 on scale 10 is worse over the past week 5 on average for its least and is a 4 today patient reports no new motor or sen vy deficits describes the pain as aching and burning sometimes shooting and dull can be stabbing at times as well. Physical Exam: VS: Blood pressure is 140/87 pulse 80 respirations 16 temperature 98.3 F height is 5 foot 10 inches weight is 203 PE: PHYSICAL EXAMINATION: GENERAL: The patient is awake, alert, oriented, appropriate, very pleasant demeanor HEENT: Shows normocephalic, atraumatic. Extraocular movements are intact and symmetrical. Oral cavity: Mucous membranes moist and pink. NECK: Shows anterior throat supple without palpable lymphadenopathy noted. Swallow reflex symmetrical. CHEST: Shows normal on inspection. Breath sounds are clear bilaterally, no rales or rhonchi bilaterally. HEART: Shows S1, S2 clear. No murmurs auscultated. ABDOMEN: Soft, nontender, nondistended, obese. No palpable organomegaly is note d. No rebound or guarding demonstrated. BACK: Shows spine grossly in the midline. Normal-appearing cervical lordotic curvature. Cervical paraspinous muscles show symmetrical on inspection, on palpation some moderate tenderness diffusely bilaterally diffusely without significant radiation. Patient shows good rotation of motion cervical spine both laterally as well as extension flexion without significant difficulty. There is increased thoracic kyphosis, some flattening of the lumbar lordotic curvature. Lumbar paraspinous muscles show symmetrical on inspection, on palpation shows some moderate tenderness diffusely throughout the upper, middle and lower distribution of the paraspinous muscles, but without specific trigger points, without radiation of pain. The patient has good rotational motion of the lumbar spine, both laterally as well as extension and flexion without significant limitation but with some minor pain with right greater than left lateral rotation and especially extension of the lumbar spine. EXTREMITIES: Lower extremities show deep tendon reflexes 2+ in the patellar and tendo calcaneus tendons. Motor exam is 5 on a scale of 5 with right dorsiflexion, extension, quadriceps and hamstring flexion and 5/5 on the left. Peripheral pulses are 1+ posterior tibial. No peripheral edema is noted bilaterally. Lower extremities are warm and dry to touch, equal in color and appearance. Upper extremities show deep tendon reflexes 2+ in the bicep triceps tendons are equal bilaterally motor exam is strong with 5 out of 5 application integration specialist strength bicep and tricep flexion and symmetrical. Peripheral pulses are 2+ radial no peripheral edema bilaterally. SKIN: Shows warm and dry, good turgor. No edema. No sores, rashes or bruising throughout. Procedure: Procedure: Options were discussed with the patient. Patient chart reviews his current medication regimen updated current review of systems updated today as well. We will proceed with a third in the series cervical epidural steroid traction stable fluoroscopic guidance. Risks were discussed including but not limited to: Bleeding, infection, possibility of epidural hematoma and subsequent neurological compromise, dural puncture, headaches, spinal cord and/or nerve damage, side effects of steroid medication, and poor results regarding pain control. Patient understands and wished to proceed. Patient will return to clinic in approximate 2 weeks for follow-up, was counseled as to return appointment activity level and side effects to be aware of. Medication Injected: Med Injected: Procedure cervical epidural steroid injection at the C6-7 level, using local anesthetic under sterile prep and drape using C-arm fluoroscopic guidance under local anesthesia medications injected ; 120 mg Depo-Medrol + 5 mL normal saline and 2 mL contrast; condition at discharge is stable patient tolerated procedure well. and had no complications Condition at Discharge: Condition at Discharge: Condition at discharge stable, patient tolerated procedure well and had no complications. YUE HASSAN MD Sep 09, 2020 12:04
--- NOTE | 2020-09-09 12:05 | PDOC4 ---
PROCEDURE Procedure Patient was consented for cervical epidural steroid injection. Risks were d iscussed including but not limited to: Bleeding, infection, possibility of epidural hematoma and subsequent neurological compromise, dural puncture, headaches, spinal cord and/or nerve damage, side effects of steroid medication, and poor results regarding pain control. Patient understands and wished to proceed. Procedure cervical epidural steroid injection at the C6-7 level, using local anesthetic under sterile prep and drape using C-arm fluoroscopic guidance under local anesthesia medications injected ; 120 mg Depo-Medrol + 5 mL normal saline and 2 mL contrast; condition at discharge is stable patient tolerated procedure well. and had no complications YUE HASSAN MD Sep 09, 2020 12:04
== END | disposition home or self-care (01) ==
LOC: PNCL 11:00
PROVIDERS: ATTEND Anesthesiology
DX: M48.02 Spinal stenosis, cervical region (principal); M54.12 Radiculopathy, cervical region; M96.1 Postlaminectomy syndrome, not elsewhere classified; M47.816 Spondylosis without myelopathy or radiculopathy, lumbar region; M79.10 Myalgia, unspecified site; E78.00 Pure hypercholesterolemia, unspecified; K21.9 Gastro-esophageal reflux disease without esophagitis; E66.9 Obesity, unspecified; F32.9 Major depressive disorder, single episode, unspecified; F41.9 Anxiety disorder, unspecified; M19.90 Unspecified osteoarthritis, unspecified site; N40.0 Benign prostatic hyperplasia without lower urinary tract symptoms; Z79.899 Other long term (current) drug therapy; Z98.890 Other specified postprocedural states; Z72.89 Other problems related to lifestyle
CPT/HCPCS: 62321; J1030; J1040; Q9965

== ENCOUNTER 2021-03-07 07:05 | Day surgery (SDC) | payer MEDICARE, OTHER ==
[~2021-03-07] VITALS: Ht 179.1 cm; Wt 93.0 kg
[~2021-03-07 07:05] MED LIST changes: +HYDROmorphone 2 MG/ML VIAL IVP PRN; -IOHEXOL 180 MG/ML 10 ML VIAL. ONE; +IV RINGERS,LACTATED 1000ML 1,000 ML IV SCH; +MORPHINE SULFATE 2 MG/ML INJ. IVP PRN; +PROCHLORPERAZINE 10 MG/2 ML VIAL. IVP PRN; +fentaNYL PF VIAL 100 MCG/2 ML VIAL IVP PRN; -methylPREDNISolone ACETATE 40 MG/ML VIAL. ONE; -methylPREDNISolone ACETATE 80 MG/ML VIAL. ONE
[2021-03-07] MEDS ORDERED: LIDOCAINE 2% PF 5 ML VIAL. ONE (08:43)
[2021-03-07] MEDS ORDERED: DEXAMETHASONE SOD PHOS 4 MG/ML VIAL ONE (08:43)
[2021-03-07] MEDS ORDERED: PROPOFOL 10 MG/ML (20ML) VIAL. IV ONE (08:43)
[2021-03-07] MEDS ORDERED: ONDANSETRON PF 4 MG/2 ML VIAL. ONE (08:43)
[2021-03-07] MEDS ORDERED: fentaNYL PF VIAL 100 MCG/2 ML VIAL ONE (08:45)
[2021-03-07] MEDS ORDERED: BUPIVACAINE MPF 0.25% 30 ML VIAL. ONE (08:49)
[2021-03-07] MEDS ORDERED: HYDR-2765 PO (10:16)
--- NOTE | 2021-03-07 10:21 | DISCH ---
DISCHARGE INSTRUCTIONS Condition on Discharge Condition on Discharge: Stable Activity After Discharge Activity Instructions for Disc: Other, see below (Gentle range of motion of fingers and elbow with fine motor use such as eating writing and typing) Bathing Instructions: Shower-keep dressing dry, No Tub Bath until see Lifting Instructions after Dis: No heavy lifting, Do not lift >10 pounds Weight Bearing Status after Di: As tolerated Diet after Discharge Diet after Discharge: Regular Wound Incision Care Wound/Incision Care: Ice to area for comfort, Keep wound/cast CDI, Do not change dressing Contacting the after DC Call your doctor for: Concerns you may have Follow-Up Follow up with: Cornelius 10 days AKZ FERRO MD Mar 07, 2021 10:21
[2021-03-07] MEDS ORDERED: HYDROcodone/APAP 7.5/325MG 1 TAB TABLET PO ONE (10:45)
[2021-03-07 10:49] VITALS: BP 117/64
--- NOTE | 2021-03-07 15:25 | PDOC4 ---
Operative Note Operative Note Date of surgery: 03/07/2021 Preoperative diagnosis: Left carpal and cubital tunnel syndrome Postoperative diagnosis: Same with moderate median nerve compression and severe ulnar nerve compression Operative procedure: Left carpal and cubital tunnel releases Surgeon: Xander Brake Operator Helper: Sanjay holcomb Anesthesia: General Estimated blood loss 15 cc Complications: None Operative indications: Patient is a 36-year-old male with EMG confirmed left carpal and cubital tunnel syndrome median and ulnar nerve compression with sensory and motor changes. I gone over with him the possibility of continued pain nerve or blood vessel damage incomplete relief sensitivity at the incision medical or other anesthesia complications among others all his questions were answered he wishes to proceed with surgical evaluation and treatment Operative text: Patient was identified procedure verified patient placed in the supine position on the operating table. After adequate amounts of general anesthesia were administered the left upper extremity was prepped and draped in standard sterile fashion and after timeout was performed patient procedure identified and verified the left upper extremity was exsanguinated by Esmarch bandage tourniquet inflated to 250 mm mercury. An incision was made just distal to the distal wrist crease dissection carried out down to the transverse carpal ligament which was divided sharply and completely divided proximally and distally with tenotomy scissors under direct vision and complete release verified visually and palpably. Median nerve was noted to have moderate compression and no synovitis or compromise of the flexor tendons was noted. A curvilinear incision was made over the medial elbow and dissection carried out down to the cubital tunnel which was gently divided from the medial retinaculum to the entrance and exit of the carpal tunnel and into the forearm musculature. The ulnar nerve was noted to have severe compression and was completely released and no subluxation was noted on elbow motion after release. Thorough irrigation carried out normal saline solution and skin closure accomplished with nylon suture in a vertical mattress fashion at the carpal tunnel incision and with buried Vicryl suture and subcuticular Monocryl at the cubital tunnel incision. Sterile soft dressings were then applied patient was returned to recovery room stable condition having tolerated procedure well. Sanjay holcomb was present for the procedure and assisted in patient positioning prepping draping retraction closure and dressings KAZ FERRO MD Mar 07, 2021 15:25
== END 2021-03-07 11:25 | disposition home or self-care (01) ==
LOC: SURG 07:05
PROVIDERS: ATTEND Orthopaedic Surgery
DX: G56.22 Lesion of ulnar nerve, left upper limb (principal); G56.02 Carpal tunnel syndrome, left upper limb; I10 Essential (primary) hypertension; E78.00 Pure hypercholesterolemia, unspecified; K21.9 Gastro-esophageal reflux disease without esophagitis; G47.30 Sleep apnea, unspecified; M19.90 Unspecified osteoarthritis, unspecified site; N40.0 Benign prostatic hyperplasia without lower urinary tract symptoms; F41.9 Anxiety disorder, unspecified; F32.9 Major depressive disorder, single episode, unspecified; Z79.899 Other long term (current) drug therapy; Z98.890 Other specified postprocedural states; Z72.89 Other problems related to lifestyle
CPT/HCPCS: 64718; 64721; A4364; A4930; J0690; J1100; J2405; J2704; J3010; J3490; A4223; A4452; A4657; A6452

== ENCOUNTER → 2021-03-21 | Outpatient (CLI) | payer MEDICARE, OTHER ==
[2021-03-07 10:49] VITALS: BP 117/64
[~2021-03-21] MED LIST changes: +HYDR-2765 PO; -HYDROmorphone 2 MG/ML VIAL IVP PRN; +IOHEXOL 180 MG/ML 10 ML VIAL. ONE; -IV RINGERS,LACTATED 1000ML 1,000 ML IV SCH; -MORPHINE SULFATE 2 MG/ML INJ. IVP PRN; -PROCHLORPERAZINE 10 MG/2 ML VIAL. IVP PRN; -fentaNYL PF VIAL 100 MCG/2 ML VIAL IVP PRN; +methylPREDNISolone ACETATE 80 MG/ML VIAL. ONE
--- NOTE | 2021-03-21 12:58 | PDOC ---
Progress Note - Pain Clinic Date of Service: DOS: DATE: 03/21/21 TIME: 12:55 Diagnosis: Dx: Cervical radiculopathy with cervical spinal stenosis cervical postlaminectomy syndrome Lumbar radiculopathy with lumbar spinal stenosis and lumbar Myofascial pain History or Present Illness: HPI: 35-year-old male returns status post cervical epidural steroid injection last seen September 09, 2020 patient did very well with about 75% improvement his main complaint however now is new pain in the low back and the bilateral lower extremities posterior gluteus posterior thigh posterior calves slightly worse on the left than the right but present bilaterally with some instability patient reports he is fallen at least 3 times since he was last here secondary to his legs feeling unstable and significant increase pain in the low back and the legs patient reports is worse with walking standing especially getting up from a s eated position he feels very unstable also painful patient be sleeping fairly well sleep feels better when he is laying down. Patient reports is a 7 on scale 10 is worse over the past week 6 on average 5 its least is a 5 today. Patient reports no loss of motor function with significant pain the low back and bilateral lower extremity describes burning and aching cramping tingling dull and tight in the back shooting and radiating the legs can be constant and severe with activity. Patient reports no bowel or bladder incontinence. Physical Exam: VS: Blood pressure is 130/80 pulse 90 respirations 18 temperature 98.4. Height 5 feet 10/2 inches weight is 202 pounds PE: PHYSICAL EXAMINATION: GENERAL: The patient is awake, alert, oriented, appropriate, very pleasant in demeanor HEENT: Shows normocephalic, atraumatic. Extraocular movements are intact and symmetrical. Oral cavity: Mucous membranes moist and pink. Dentition is intact. NECK: Shows anterior throat supple without palpable lymphadenopathy noted. Swallow reflex symmetrical. CHEST: Shows normal on inspection. Breath sounds are clear bilaterally, distant no rales or rhonchi auscultated. HEART: Shows S1, S2 clear. No murmurs auscultated. ABDOMEN: Soft, nontender, nondistended, obese. No palpable organomegaly is noted. BACK: Shows spine grossly in the midline. Normal-appearing cervical lordotic curvature. Cervical paraspinous muscles show symmetrical inspection, on palpation some moderate tenderness diffusely diffusely without significant radiation of this. Middle and inferior aspect the cervical paraspinous muscles bilaterally. Patient shows full rotation motion cervical spine with lateral as well as extension flexion without significant difficulty or pain reported. There is slightly increased thoracic kyphosis, some minor flattening of the lumbar lordotic curvature. Lumbar paraspinous muscles show symmetrical on inspection, on palpation shows some moderate tenderness diffusely throughout the upper, middle and lower distribution of the paraspinous muscles without specific trigger points, without radiation of pain. The patient has good rotational motion of the lumbar spine, both laterally as well as extension and flexion without significant difficulty. No tenderness over the spinous processes, sacrum or sacroiliac regions. EXTREMITIES: Lower extremities show deep tendon reflexes 2 in the patellar and tendo calcaneus tendons. Motor exam is 5 on a scale of 5 with right dorsiflexion, extension, quadriceps and hamstring flexion and []/5 on the left. Peripheral pulses are 1+ posterior tibial. No peripheral edema is noted bilaterally. Lower extremities are warm and dry to touch, equal in color and appearance. Upper extremity show deep tendon reflexes 2+ in the bicep tricep tendons, motor exam is strong with 5 out of 5 foreclosure clerk strength bicep and tricep flexion. Peripheral pulses are 2+ radial. Shoulder shrug strong intact without loss of strength on resistance. SKIN: Shows warm and dry, good turgor. No edema. No sores, rashes or bruising throughout. Procedure: Procedure: Options were discussed with patient. Patient chart reviews his current medication regimen updated current review of systems updated today as well. We will proceed with a lumbar epidural steroid injection today with fluoroscopic guidance. Risks were discussed including but not limited to: Bleeding, infection, possibility of epidural hematoma and subsequent neurological compromise, dural puncture, headaches, spinal cord and/or nerve damage, side effects of steroid medication, and poor results regarding pain control. Patient understands and wished to proceed. She will return to the clinic in approximate 2 weeks for follow-up, was counseled as to return appointment, activity level, and side effects to be aware of. Medication Injected: Med Injected: Procedure is lumbar epidural steroid injection under local anesthetic using sterile prep and drape at the L5-S1 level using C-arm fluoroscopic guidance in both AP and lateral views medications injected is 120 mg Depo-Medrol +10mL preservative-free normal saline and 2 mL contrast- condition at discharge is stable patient tolerated procedure well had no complications. Condition at Discharge: Condition at Discharge: Condition at discharge stable, patient tolerated the procedure well and had no complications. YUE HASSAN MD Mar 21, 2021 12:58
--- NOTE | 2021-03-21 12:59 | PDOC4 ---
Procedure Note: ICD 10 Code: ICD 10 Code: M54.17 M4 8.07 M4 7.816 Procedure Note: Patient was consented for lumbar epidural steroid injection with fluoroscopic guidance. Risks were discussed including but not limited to: Bleeding, infection, possibility of epidural hematoma and subsequent neurological compromise, dural puncture, headaches, spinal cord and/or nerve damage, side effects of steroid medication, and poor results regarding pain control. Patient understands and wished to proceed. Procedure is lumbar epidural steroid injection under local anesthetic using s terile prep and drape at the L5-S1 level using C-arm fluoroscopic guidance in both AP and lateral views medications injected is 120 mg Depo-Medrol +10mL preservative-free normal saline and 2 mL contrast- condition at discharge is stable patient tolerated procedure well had no complications. YUE HASSAN MD Mar 21, 2021 12:59
== END | disposition home or self-care (01) ==
LOC: PNCL 11:33
PROVIDERS: ATTEND Anesthesiology
DX: M48.061 Spinal stenosis, lumbar region without neurogenic claudication (principal); M48.02 Spinal stenosis, cervical region; M54.16 Radiculopathy, lumbar region; M54.12 Radiculopathy, cervical region; M96.1 Postlaminectomy syndrome, not elsewhere classified; M79.18 Myalgia, other site; E78.00 Pure hypercholesterolemia, unspecified; G47.30 Sleep apnea, unspecified; K21.9 Gastro-esophageal reflux disease without esophagitis; M19.90 Unspecified osteoarthritis, unspecified site; F41.9 Anxiety disorder, unspecified; F32.9 Major depressive disorder, single episode, unspecified; Z72.89 Other problems related to lifestyle; Z79.899 Other long term (current) drug therapy; Z98.890 Other specified postprocedural states
CPT/HCPCS: 62323; J1040; Q9965

== ENCOUNTER → 2021-08-07 | Outpatient (CLI) | payer MEDICARE, OTHER ==
[~2021-08-07] MED LIST changes: -DULO60CA6 PO; +DULO60CA7 PO
--- NOTE | 2021-08-07 12:57 | PDOC4 ---
Procedure Note: ICD 10 Code: ICD 10 Code: M54.12 M50.30 M4 8.02 Procedure Note: Patient was consented for cervical epidural steroid injection with fluoroscopic guidance. Risks were discussed including but not limited to: Bleeding, infection, possibility of epidural hematoma and subsequent neurological compromise, dural puncture, headaches, spinal cord and/or nerve damage, side effects of steroid medication, and poor results regarding pain control. Patient understands and wished to proceed. Procedure cervical epidural steroid injection at the C6-7 level, using local anesthetic under sterile prep and drape using C-arm fluoroscopic guidance under local anesthesia medications injected ;120 mg Depo-Medrol +5 mL normal saline and 2 mL contrast; condition at discharge is stable patient tolerated procedure well. and had no complications YUE HASSAN MD Aug 07, 2021 12:57
--- NOTE | 2021-08-07 12:57 | PDOC ---
Progress Note - Pain Clinic Date of Service: DOS: DATE: 08/07/21 TIME: 12:50 Diagnosis: Dx: Cervical radiculopathy with cervical spinal stenosis and cervical postlaminectomy syndrome Lumbar radiculopathy with lumbar spinal stenosis and lumbar spondylosis Myofascial pain History or Present Illness: HPI: 35-year-old male returns today last seen March 21, 2021 patient underwent lumbar epidural steroid injection at time with good results and decreased pain in the low back and bilateral lower extremities patient reports chief complaint now is pain the base the neck and shoulder especially on the right side with radiating pain into the right arm anterior deltoid anterior bicep into the forearm and hand with some numbness and tingling patient reports is an 8 on scale 10 at its worst over the past week 6 on average 5 to [place] is a 6 today patient reports worse with repetitive motions of weightbearing reaching forward also reaching over his head with his right hand better with the resting laying down generally does not awaken him from sleep at night. Patient reports he had a fall in May 2021 had a fractured femur also a concussion had surgery for the femur and is in recovering from that since. Patient reports that he exacerbated his low back pain to some extent but his neck and right upper extremity pain is much more noticeable at this time. Patient reports no bowel or bladder incontinence no loss of motor function but significant fatigability of the right upper extremity with repetitive motion and lifting. Physical Exam: VS: Blood pressure is 132/80 pulse 80 respirations 18 temperature 98.3 F height 5 feet 10 inches weight is 214 pounds. PE: PHYSICAL EXAMINATION: GENERAL: The patient is awake, alert, oriented, appropriate, very pleasant in demeanor HEENT: Shows normocephalic, atraumatic. Extraocular movements are intact and symmetrical. Oral cavity: Mucous membranes moist and pink. Dentition is intact. NECK: Shows anterior throat supple without palpable lymphadenopathy noted. Swallow reflex symmetrical. CHEST: Shows normal on inspection. Breath sounds are clear bilaterally, distant but no rales or rhonchi. HEART: Shows S1, S2 clear. No murmurs auscultated. ABDOMEN: Soft, nontender, nondistended. No palpable organomegaly is noted. BACK: Shows spine grossly in the midline. Normal-appearing cervical lordotic curvature. There is mildly increased thoracic kyphosis, some flattening of the lumbar lordotic curvature. Lumbar paraspinous muscles show symmetrical on i nspection, on palpation shows some moderate tenderness diffusely throughout the upper, middle and lower distribution of the paraspinous muscles without specific trigger points, without radiation of pain. The patient has good rotational motion of the lumbar spine, both laterally as well as extension and flexion without significant difficulty. No tenderness over the spinous processes, sacrum or sacroiliac regions. EXTREMITIES: Lower extremities show deep tendon reflexes 2+ in the patellar and tendo calcaneus tendons. Motor exam is 5 on a scale of 5 with right dorsiflexion, extension, quadriceps and hamstring flexion and 5/5 on the left. Peripheral pulses are 1+ posterior tibial. No peripheral edema is noted bilaterally. Lower extremities are warm and dry to touch, equal in color and appearance. Upper extremities show deep tendon reflexes 2+ in the bicep tricep tendons, motor exam is 4 scale 5 on the right and 5/5 on the left with punch molder strength bicep tricep flexion. Shoulder shrug is strong and intact without loss strength on resistance. Peripheral pulses are 2+ radial bilaterally. SKIN: Shows warm and dry, good turgor. No edema. No sores, rashes or bruising throughout. Procedure: Procedure: Options were discussed with the patient. Patient chart was viewed as his current medication regimen updated current review of systems updated today as well. We will proceed with a cervical epidural steroid injection today with fluoroscopic guidance. Risks were discussed including but not limited to: Bleeding, infection, possibility of epidural hematoma and subsequent neurological compromise, dural puncture, headaches, spinal cord and/or nerve damage, side effects of steroid medication, and poor results regarding pain control. Patient understands and wished to proceed. Patient will return to the clinic in approximately 2 weeks for follow-up, was counseled as to return appointment, activity level, and side effect to be aware of. Medication Injected: Med Injected: Procedure cervical epidural steroid injection at the C6-7 level, using local anesthetic under sterile prep and drape using C-arm fluoroscopic guidance under local anesthesia medications injected ;120 mg Depo-Medrol +5 mL normal saline and 2 mL contrast; condition at discharge is stable patient tolerated procedure well. and had no complications Condition at Discharge: Condition at Discharge: Condition at discharge stable, patient tolerated the procedure well and had no complications. YUE HASSAN MD Aug 07, 2021 12:57
== END | disposition home or self-care (01) ==
LOC: PNCL 11:23
PROVIDERS: ATTEND Anesthesiology
DX: M48.02 Spinal stenosis, cervical region (principal); M96.1 Postlaminectomy syndrome, not elsewhere classified; M48.061 Spinal stenosis, lumbar region without neurogenic claudication; M47.26 Other spondylosis with radiculopathy, lumbar region; M79.18 Myalgia, other site; E78.00 Pure hypercholesterolemia, unspecified; G47.30 Sleep apnea, unspecified; K21.9 Gastro-esophageal reflux disease without esophagitis; M19.90 Unspecified osteoarthritis, unspecified site; F41.9 Anxiety disorder, unspecified; F32.9 Major depressive disorder, single episode, unspecified; N40.0 Benign prostatic hyperplasia without lower urinary tract symptoms; Z79.899 Other long term (current) drug therapy; Z72.89 Other problems related to lifestyle; Z98.890 Other specified postprocedural states
CPT/HCPCS: 62321; J1040; Q9965